=== PATIENT | male | born 1970 | race Caucasian/White ===

== ENCOUNTER 2017-01-30 11:30 | Emergency (ER) | payer MEDICAID ==
[~2017-01-30] VITALS: Ht 170.2 cm; Wt 61.2 kg
[2017-01-30 11:38] VITALS: BP_SYST 114
[2017-01-30] MEDS ORDERED: RITO100T PO (11:46)
[2017-01-30] MEDS ORDERED: EMTR1TAB12 PO (11:46)
[2017-01-30] MEDS ORDERED: NACL 0.9% 1,000 ML IV ONE ×2 (11:46→12:00)
[2017-01-30] MEDS ORDERED: DARU800T PO (11:46)
[2017-01-30] MEDS ORDERED: BELLADONNA ALKALOIDS/PHENOBARB 5 ML UDC PO ONE (12:00)
[2017-01-30 12:05] LABS: BASOPHILS % (AUTO) 0.2 % (0.0-2.0); EOSINOPHILS # (AUTO) 0.1 K/uL (0.0-0.4); EOSINOPHILS % (AUTO) 1.2 % (0.0-4.0); HEMATOCRIT 39.4 % (36-54); HEMOGLOBIN 12.5 g/dL (14.0-18.0); LYMPHOCYTES # (AUTO) 1.5 K/uL (1.0-5.5); LYMPHOCYTES % (AUTO) 26.4 % (20.5-51.5); MEAN CORPUSCULAR HEMOGLOBIN 29 pg (27-31); MEAN CORPUSCULAR HGB CONC 32 % (32-36); MEAN CORPUSCULAR VOLUME 90 fL (79.0-98.0); MONOCYTES # (AUTO) 0.3 K/uL (0.0-1.0); NEUTROPHILS # (AUTO) 3.7 K/uL (1.8-7.7); NEUTROPHILS % (AUTO) 66.2 % (40.0-70.0); PLATELET COUNT (AUTO) 407 K/uL (130-430); RED BLOOD CELL COUNT(AUTO) 4.39 MIL/uL (4.2-6.2); RED CELL DISTRIBUTION WIDTH 13.2 % (9.0-15.0); WHITE BLOOD COUNT (AUTO) 5.6 K/uL (4.8-10.8)
[2017-01-30 12:17] LABS: CALCIUM 8.3 mg/dL (8.4-11.0); CREATININE 0.76 mg/dL (0.55-1.30); POTASSIUM 3.6 mmol/L (3.5-5.1)
[2017-01-30 12:21] LABS: ALBUMIN 3.3 g/dL (3.4-4.8); PROTHROMBIN TIME 9.8 SECS (9.5-12.5); TOTAL BILIRUBIN 0.3 mg/dL (0.0-1.0)
[2017-01-30] MEDS ORDERED: MORPHINE 4 MG/ML INJ. SYRINGE IVP ONE (14:30)
[2017-01-30 14:48] LABS: BILIRUBIN,URINE NEGATIVE (NEGATIVE); BLOOD, URINE NEGATIVE (NEGATIVE); CLARITY/URINE CLEAR (CLEAR); COLOR,URINE YELLOW (YELLOW); GLUCOSE,URINE NEGATIVE (NEGATIVE); KETONES,URINE NEGATIVE (NEGATIVE); LEUKOCYTE ESTERASE ,URINE NEGATIVE (NEGATIVE); NITRITE, URINE NEGATIVE (NEGATIVE); PROTEIN URINE NEGATIVE (NEGATIVE); UROBILINOGEN,URINE 0.2 (0.2-1.0)
[2017-01-30 17:00] VITALS: BP_SYST 114
== END 2017-01-30 17:00 | disposition home or self-care (01) ==
LOC: SED 11:30
DX: K52.9 Noninfective gastroenteritis and colitis, unspecified (principal); E86.0 Dehydration; I10 Essential (primary) hypertension
CPT/HCPCS: 36415; 70450; 71010; 80053; 81003; 82150; 83605; 83690; 85025; 85610; 85730; 87040; 96361; 96374; 99285; J2270; J7030

== ENCOUNTER 2017-01-31 09:36 | Inpatient (IN) | payer MEDICAID ==
[~2017-01-31] VITALS: Ht 170.2 cm; Wt 65.8 kg
[~2017-01-31 09:36] MED LIST: DARU800T PO; EMTR1TAB12 PO; RITO100T PO
[2017-01-31 09:43] VITALS: BP_SYST 112
[2017-01-31] MEDS ORDERED: NACL 0.9% 1,000 ML IV ONE (09:53)
[2017-01-31] MEDS ORDERED: ONDANSETRON HCL 4 MG/2 ML VIAL IVP ONE (10:00)
[2017-01-31] MEDS ORDERED: MORPHINE 2 MG/ML INJ. SYRINGE IVP ONE (10:00)
[2017-01-31 10:11] LABS: BILIRUBIN,URINE NEGATIVE (NEGATIVE); BLOOD, URINE NEGATIVE (NEGATIVE); CLARITY/URINE SL HAZY (CLEAR); COLOR,URINE YELLOW (YELLOW); GLUCOSE,URINE NEGATIVE (NEGATIVE); KETONES,URINE NEGATIVE (NEGATIVE); LEUKOCYTE ESTERASE ,URINE NEGATIVE (NEGATIVE); NITRITE, URINE NEGATIVE (NEGATIVE); PH,URINE 5.5 (5.0-8.0); PROTEIN URINE NEGATIVE (NEGATIVE); UROBILINOGEN,URINE 0.2 (0.2-1.0)
[2017-01-31 10:22] LABS: BASOPHILS % (AUTO) 0.3 % (0.0-2.0); EOSINOPHILS # (AUTO) 0.1 K/uL (0.0-0.4); EOSINOPHILS % (AUTO) 1.6 % (0.0-4.0); HEMATOCRIT 33.8 % (36-54); HEMOGLOBIN 11.2 g/dL (14.0-18.0); LYMPHOCYTES # (AUTO) 1.6 K/uL (1.0-5.5); LYMPHOCYTES % (AUTO) 31.2 % (20.5-51.5); MEAN CORPUSCULAR HEMOGLOBIN 30 pg (27-31); MEAN CORPUSCULAR HGB CONC 33 % (32-36); MEAN CORPUSCULAR VOLUME 89 fL (79.0-98.0); MONOCYTES # (AUTO) 0.3 K/uL (0.0-1.0); MONOCYTES % (AUTO) 5.5 % (1.7-9.3); NEUTROPHILS # (AUTO) 3.3 K/uL (1.8-7.7); NEUTROPHILS % (AUTO) 61.4 % (40.0-70.0); PLATELET COUNT (AUTO) 389 K/uL (130-430); RED BLOOD CELL COUNT(AUTO) 3.79 MIL/uL (4.2-6.2); RED CELL DISTRIBUTION WIDTH 13.3 % (9.0-15.0); WHITE BLOOD COUNT (AUTO) 5.3 K/uL (4.8-10.8)
[2017-01-31 10:38] LABS: CALCIUM 8.2 mg/dL (8.4-11.0); CREATININE 0.68 mg/dL (0.55-1.30); POTASSIUM 3.7 mmol/L (3.5-5.1)
[2017-01-31 10:43] LABS: TOTAL BILIRUBIN 0.2 mg/dL (0.0-1.0)
[2017-01-31 11:45] VITALS: BP_SYST 97
[2017-01-31] MEDS ORDERED: ACETAMINOPHEN 325 MG TABLET PO PRN (15:30)
[2017-01-31] MEDS ORDERED: ONDANSETRON HCL 4 MG/2 ML VIAL IVP PRN (15:30)
[2017-01-31] MEDS: D5NS 1,000 ML IV SCH (16:20)
[2017-01-31] MEDS: metroNIDAZOLE 500 mg/NS 100 ML IV SCH ×2 (16:20→21:53)
[2017-01-31] MEDS: MORPHINE 4 MG/ML INJ. SYRINGE IVP PRN (16:21)
[2017-01-31 16:23] VITALS: BP_SYST 107
[2017-01-31] MEDS: LEVOFLOXACIN 500 MG/D5W 100 ML IV SCH (17:34)
[2017-01-31] MEDS: MORPHINE 2 MG/ML INJ. SYRINGE IVP PRN (19:44)
[2017-02-01 00:24] VITALS: BP_SYST 90
[2017-02-01] MEDS: MORPHINE 4 MG/ML INJ. SYRINGE IVP PRN ×5 (00:54→22:36)
[2017-02-01] MEDS: D5NS 1,000 ML IV SCH ×3 (01:30→20:54)
[2017-02-01 05:57] VITALS: BP_SYST 93
[2017-02-01 06:22] LABS: BASOPHILS % (AUTO) 0.2 % (0.0-2.0); EOSINOPHILS # (AUTO) 0.1 K/uL (0.0-0.4); EOSINOPHILS % (AUTO) 3.2 % (0.0-4.0); HEMATOCRIT 31.5 % (36-54); HEMOGLOBIN 10.5 g/dL (14.0-18.0); LYMPHOCYTES # (AUTO) 1.5 K/uL (1.0-5.5); LYMPHOCYTES % (AUTO) 41.2 % (20.5-51.5); MEAN CORPUSCULAR HEMOGLOBIN 30 pg (27-31); MEAN CORPUSCULAR HGB CONC 33 % (32-36); MEAN CORPUSCULAR VOLUME 89 fL (79.0-98.0); MONOCYTES # (AUTO) 0.4 K/uL (0.0-1.0); MONOCYTES % (AUTO) 10.8 % (1.7-9.3); NEUTROPHILS # (AUTO) 1.5 K/uL (1.8-7.7); NEUTROPHILS % (AUTO) 44.6 % (40.0-70.0); PLATELET COUNT (AUTO) 338 K/uL (130-430); RED BLOOD CELL COUNT(AUTO) 3.53 MIL/uL (4.2-6.2); RED CELL DISTRIBUTION WIDTH 13.1 % (9.0-15.0); WHITE BLOOD COUNT (AUTO) 3.5 K/uL (4.8-10.8)
[2017-02-01] MEDS: metroNIDAZOLE 500 mg/NS 100 ML IV SCH ×3 (06:23→21:51)
[2017-02-01 06:29] LABS: ALBUMIN 2.5 g/dL (3.4-4.8); CALCIUM 7.6 mg/dL (8.4-11.0); CREATININE 0.76 mg/dL (0.55-1.30); POTASSIUM 3.6 mmol/L (3.5-5.1); TOTAL BILIRUBIN 0.2 mg/dL (0.0-1.0)
[2017-02-01 08:26] VITALS: BP_SYST 101
[2017-02-01 13:05] VITALS: BP_SYST 107
[2017-02-01] MEDS: LEVOFLOXACIN 500 MG/D5W 100 ML IV SCH (15:28)
[2017-02-01 16:52] VITALS: BP_SYST 102
[2017-02-01] MEDS ORDERED: COMMUNICATION ORDER XX ONE (17:30)
[2017-02-01] MEDS: VANCOMYCIN HCL 250 MG CAPSULE PO SCH ×2 (18:31→23:57)
[2017-02-01 20:00] VITALS: BP_SYST 110
[2017-02-02] VITALS: BP_SYST 92
[2017-02-02 06:09] VITALS: BP_SYST 94
[2017-02-02] MEDS: VANCOMYCIN HCL 250 MG CAPSULE PO SCH ×4 (06:28→23:52)
[2017-02-02] MEDS: metroNIDAZOLE 500 mg/NS 100 ML IV SCH ×3 (06:28→22:16)
[2017-02-02] MEDS: MORPHINE 4 MG/ML INJ. SYRINGE IVP PRN ×3 (07:59→20:53)
[2017-02-02 08:05] VITALS: BP_SYST 105
[2017-02-02] MEDS: D5NS 1,000 ML IV SCH ×2 (10:48→22:16)
[2017-02-02 12:04] VITALS: BP_SYST 96
[2017-02-02 16:09] VITALS: BP_SYST 101
[2017-02-02] MEDS ORDERED: LOPERAMIDE HCL 2 MG CAPSULE PO PRN ×2 (19:00)
[2017-02-02 20:00] VITALS: BP_SYST 106
[2017-02-03 01:11] VITALS: BP_SYST 113
[2017-02-03] MEDS: MORPHINE 4 MG/ML INJ. SYRINGE IVP PRN ×3 (02:56→14:44)
[2017-02-03 03:12] VITALS: BP_SYST 116
[2017-02-03] MEDS: metroNIDAZOLE 500 mg/NS 100 ML IV SCH ×3 (06:00→21:06)
[2017-02-03] MEDS: VANCOMYCIN HCL 250 MG CAPSULE PO SCH ×4 (06:00→23:14)
[2017-02-03 08:11] VITALS: BP_SYST 103
[2017-02-03] MEDS: D5NS 1,000 ML IV SCH ×2 (08:13→12:56)
[2017-02-03] MEDS ORDERED: EMTRICITABINE PO SCH (11:00)
[2017-02-03] MEDS ORDERED: RITONAVIR PO SCH (11:00)
[2017-02-03] MEDS ORDERED: DARUNAVIR ETHANOLATE 800 MG PO SCH (11:00)
[2017-02-03] MEDS ORDERED: TENOFOVIR DISOPROXIL PO SCH (11:00)
[2017-02-03 11:32] LABS: BASOPHILS % (AUTO) 0.3 % (0.0-2.0); EOSINOPHILS # (AUTO) 0.1 K/uL (0.0-0.4); EOSINOPHILS % (AUTO) 2.6 % (0.0-4.0); HEMATOCRIT 31.1 % (36-54); HEMOGLOBIN 10.5 g/dL (14.0-18.0); LYMPHOCYTES # (AUTO) 1.8 K/uL (1.0-5.5); MEAN CORPUSCULAR HEMOGLOBIN 30 pg (27-31); MEAN CORPUSCULAR HGB CONC 34 % (32-36); MEAN CORPUSCULAR VOLUME 89 fL (79.0-98.0); MONOCYTES # (AUTO) 0.4 K/uL (0.0-1.0); MONOCYTES % (AUTO) 11.9 % (1.7-9.3); PLATELET COUNT (AUTO) 321 K/uL (130-430); RED CELL DISTRIBUTION WIDTH 13.1 % (9.0-15.0)
[2017-02-03 11:55] LABS: CALCIUM 7.8 mg/dL (8.4-11.0); CREATININE 0.76 mg/dL (0.55-1.30); POTASSIUM 3.4 mmol/L (3.5-5.1)
[2017-02-03 12:20] VITALS: BP_SYST 97
[2017-02-03 12:29] LABS: WHITE BLOOD COUNT (AUTO) 3.3 K/uL (4.8-10.8)
[2017-02-03 12:30] LABS: NEUTROPHILS % (AUTO) 29.2 % (40.0-70.0)
[2017-02-03 16:16] VITALS: BP_SYST 103
[2017-02-03] MEDS: MORPHINE 2 MG/ML INJ. SYRINGE IVP PRN ×2 (18:48→23:15)
[2017-02-03] MEDS ORDERED: POTASSIUM CHLORIDE 20 MEQ TAB.PRT.SR PO ONE (19:30)
[2017-02-03 20:00] VITALS: BP_SYST 98
[2017-02-03] MEDS: POTASSIUM CHLORIDE 20 MEQ TAB.PRT.SR PO SCH (20:23)
[2017-02-04] VITALS (8 sets, daily range): BP systolic 85–124
[2017-02-04] MEDS: D5NS 1,000 ML IV SCH ×2 (02:34→14:10)
[2017-02-04] MEDS: VANCOMYCIN HCL 250 MG CAPSULE PO SCH ×3 (05:04→16:38)
[2017-02-04] MEDS: metroNIDAZOLE 500 mg/NS 100 ML IV SCH ×2 (05:04→14:10)
[2017-02-04] MEDS: MORPHINE 2 MG/ML INJ. SYRINGE IVP PRN ×3 (05:05→14:02)
[2017-02-04] MEDS ORDERED: TRUVADA PO SCH (09:00)
[2017-02-04] MEDS ORDERED: NORVIR 100 MG PO SCH (09:00)
[2017-02-04] MEDS ORDERED: PREZISTA 800 MG PO SCH (09:00)
[2017-02-04] MEDS: POTASSIUM CHLORIDE 20 MEQ TAB.PRT.SR PO SCH (09:02)
[2017-02-04] MEDS ORDERED: POTA20TA83 PO (14:40)
[2017-02-04] MEDS ORDERED: VANC250C11 PO (14:40)
[2017-02-04] MEDS ORDERED: METR500T PO (15:54)
[2017-02-04] MEDS ORDERED: L.RH1CAP PO (15:55)
== END 2017-02-04 17:00 | disposition home or self-care (01) | DRG 893 ==
LOC: SED 09:36 → SMU 11:04
PROVIDERS: ADMIT Internal Medicine Hospice and Palliative Medicine; ATTEND Internal Medicine Hospice and Palliative Medicine
DX: B20 Human immunodeficiency virus [HIV] disease (principal); A04.72 Enterocolitis due to Clostridium difficile, not specified as recurrent; E44.0 Moderate protein-calorie malnutrition; E86.0 Dehydration; D63.8 Anemia in other chronic diseases classified elsewhere; Z79.899 Other long term (current) drug therapy; Z68.22 Body mass index [BMI] 22.0-22.9, adult
CPT/HCPCS: 36415; 80048; 80053; 81003; 85025; 87045-TC; 87046; 87177; 87230-TC; 89055; 96361; 96374; 96375; 99285; J1956; J2270; J2405; J3490; J7030; J7040; J7042

== ENCOUNTER 2018-03-25 17:22 | Emergency (ER) | payer MEDICAID ==
[~2018-03-25] VITALS: Ht 167.6 cm; Wt 56.2 kg
[~2018-03-25 17:22] MED LIST changes: +L.RH1CAP PO; +METR500T PO; +POTA20TA83 PO; +VANC250C11 PO
[2018-03-25 17:34] VITALS: BP_SYST 122
--- NOTE | 2018-03-25 17:37 | NUR ---
Patient triaged and placed in waiting room. VSS and patient appears in no acute distress at this time. Accompanied by family, awaiting available bed, and MD notified of need for MSE.
--- NOTE | 2018-03-25 18:05 | NUR ---
Pt placed in bed 8
--- NOTE | 2018-03-25 18:11 | NUR ---
ARISTEO Fitch at bedside examining patient.
[2018-03-25] MEDS ORDERED: MORPHINE 4 MG/ML INJ. SYRINGE IVP ONE (18:15)
[2018-03-25] MEDS ORDERED: NACL 0.9% 1,000 ML IV ONE (18:15)
--- NOTE | 2018-03-25 18:55 | NUR ---
IV FLUIDS STARTED AND MORPHINE IVP GIVEN PER MD ORDERS. TOLERATING WELL. PLEASE SEE MAR FOR DETAILS.
[2018-03-25 19:16] LABS: HEMATOCRIT 37.7 % (36-54); HEMOGLOBIN 12.4 g/dL (14.0-18.0); MEAN CORPUSCULAR HEMOGLOBIN 30 pg (27-31); MEAN CORPUSCULAR HGB CONC 33 % (32-36); MEAN CORPUSCULAR VOLUME 91 fL (79.0-98.0); PLATELET COUNT (AUTO) 230 K/uL (130-430); RED BLOOD CELL COUNT(AUTO) 4.14 MIL/uL (4.2-6.2); RED CELL DISTRIBUTION WIDTH 13.2 % (9.0-15.0); WHITE BLOOD COUNT (AUTO) 3.6 K/uL (4.8-10.8)
[2018-03-25 19:27] LABS: CALCIUM 8.2 mg/dL (8.4-11.0); CREATININE 0.79 mg/dL (0.55-1.30); POTASSIUM 3.4 mmol/L (3.5-5.1)
--- NOTE | 2018-03-25 19:30 | NUR ---
Pt came in C/O R middle finger pain/ swelling and abdominal pain and diarrhea x 3 days. Pt was medicated with morphine. Vital signs stable at this time, no acute distress noted. Will continue to monitor.
[2018-03-25 19:31] LABS: ALBUMIN 3.1 g/dL (3.4-4.8); TOTAL BILIRUBIN 0.2 mg/dL (0.0-1.0)
--- NOTE | 2018-03-25 19:31 | NUR ---
Pt is sleeping quietly in bed, no acute distress noted at this time. Will continue to monitor.
[2018-03-25 20:10] LABS: BILIRUBIN,URINE NEGATIVE (NEGATIVE); BLOOD, URINE NEGATIVE (NEGATIVE); CLARITY/URINE SL HAZY (CLEAR); COLOR,URINE YELLOW (YELLOW); GLUCOSE,URINE NEGATIVE (NEGATIVE); KETONES,URINE TRACE (NEGATIVE); LEUKOCYTE ESTERASE ,URINE NEGATIVE (NEGATIVE); NITRITE, URINE NEGATIVE (NEGATIVE); PROTEIN URINE TRACE (NEGATIVE); UROBILINOGEN,URINE 0.2 (0.2-1.0)
[2018-03-25 20:23] LABS: BACTERIA,URINE FEW /HPF (None Seen); MUCUS,URINE 2+ /LPF (None Seen); RBC,URINE 0-3 /HPF (0-3); WBC,URINE 0-3 /HPF (0-3)
[2018-03-25 20:24] LABS: ATYPICAL LYMPHOCYTES % 6 % (0-0); BAND % (MANUAL) 8 % (0-6); BASOPHILS % (MANUAL) 0 % (0-2); EOSINOPHILS % (MANUAL) 3 % (0-7); LYMPHOCYTES % (MANUAL) 35 % (20-46); MONOCYTES % (MANUAL) 8 % (0-11)
--- NOTE | 2018-03-25 20:35 | NUR ---
Patient given written and verbal discharge instructions and verbalizes understanding. ER MD discussed with patient the results and treatment provided. Patient in stable condition. ID arm band removed. IV catheter removed intact and dressing applied, no active bleeding. Rx of Cipro, Motrin, and [place] given. Patient educated on pain management and to follow up with PMD. Pain Scale 0/10. Opportunity for questions provided and answered. Medication side effect fact sheet provided.
[2018-03-25 20:36] VITALS: BP_SYST 101
== END 2018-03-25 20:35 | disposition home or self-care (01) ==
LOC: SED 17:22
DX: R10.84 Generalized abdominal pain (principal); R19.7 Diarrhea, unspecified; I10 Essential (primary) hypertension; Z79.899 Other long term (current) drug therapy
CPT/HCPCS: 36415; 74176; 80053; 81000; 83605; 83690; 85007; 85027; 87040; 87086; 96361; 96374; 99284; J2270; J7030

== ENCOUNTER 2018-03-26 10:17 | Emergency (ER) | payer MEDICAID ==
[~2018-03-26] VITALS: Ht 167.6 cm; Wt 56.7 kg
[2018-03-26 10:23] VITALS: BP_SYST 110
[2018-03-26] MEDS ORDERED: NACL 0.9% 1,000 ML IV ONE (10:37)
[2018-03-26 11:21] LABS: BASOPHILS % (AUTO) 0.5 % (0.0-2.0); EOSINOPHILS # (AUTO) 0.2 K/uL (0.0-0.4); HEMATOCRIT 38.5 % (36-54); HEMOGLOBIN 12.6 g/dL (14.0-18.0); LYMPHOCYTES # (AUTO) 1.5 K/uL (1.0-5.5); LYMPHOCYTES % (AUTO) 35.7 % (20.5-51.5); MEAN CORPUSCULAR HEMOGLOBIN 30 pg (27-31); MEAN CORPUSCULAR HGB CONC 33 % (32-36); MEAN CORPUSCULAR VOLUME 93 fL (79.0-98.0); MONOCYTES # (AUTO) 0.3 K/uL (0.0-1.0); MONOCYTES % (AUTO) 6.6 % (1.7-9.3); NEUTROPHILS # (AUTO) 2.2 K/uL (1.8-7.7); NEUTROPHILS % (AUTO) 53.2 % (40.0-70.0); PLATELET COUNT (AUTO) 218 K/uL (130-430); RED BLOOD CELL COUNT(AUTO) 4.15 MIL/uL (4.2-6.2); RED CELL DISTRIBUTION WIDTH 13.8 % (9.0-15.0); WHITE BLOOD COUNT (AUTO) 4.2 K/uL (4.8-10.8)
[2018-03-26] MEDS ORDERED: MORPHINE 4 MG/ML INJ. SYRINGE IVP ONE (11:30)
[2018-03-26 11:41] LABS: CALCIUM 7.8 mg/dL (8.4-11.0); CREATININE 0.79 mg/dL (0.55-1.30); POTASSIUM 3.3 mmol/L (3.5-5.1)
[2018-03-26 11:48] LABS: PROTHROMBIN TIME 10.2 SECS (9.5-12.5)
[2018-03-26 11:49] LABS: ALBUMIN 3.2 g/dL (3.4-4.8); TOTAL BILIRUBIN 0.2 mg/dL (0.0-1.0)
[2018-03-26 12:01] LABS: BILIRUBIN,URINE NEGATIVE (NEGATIVE); BLOOD, URINE NEGATIVE (NEGATIVE); CLARITY/URINE CLEAR (CLEAR); COLOR,URINE YELLOW (YELLOW); GLUCOSE,URINE NEGATIVE (NEGATIVE); KETONES,URINE TRACE (NEGATIVE); LEUKOCYTE ESTERASE ,URINE NEGATIVE (NEGATIVE); NITRITE, URINE NEGATIVE (NEGATIVE); PROTEIN URINE TRACE (NEGATIVE); UROBILINOGEN,URINE 0.2 (0.2-1.0)
[2018-03-26] MEDS ORDERED: cefTRIAXone 1 GM IVPB PREMIX 50 ML IV ONE (12:45)
[2018-03-26 13:45] VITALS: BP_SYST 110
== END 2018-03-26 13:45 | disposition home or self-care (01) ==
LOC: SED 10:17
DX: G89.29 Other chronic pain (principal); R10.9 Unspecified abdominal pain; R19.7 Diarrhea, unspecified; L03.011 Cellulitis of right finger; I10 Essential (primary) hypertension; Z79.899 Other long term (current) drug therapy
CPT/HCPCS: 36415; 71045; 80053; 81003; 82550; 83605; 83690; 84484; 85025; 85610; 85730; 87040; 93005; 96361; 96365; 96375; 99284; J0696; J2270; J7030

== ENCOUNTER 2018-04-21 20:23 | Emergency (ER) | payer MEDICAID ==
[~2018-04-21] VITALS: Ht 170.2 cm; Wt 70.3 kg
[~2018-04-21 20:23] MED LIST changes: -L.RH1CAP PO; -METR500T PO; -POTA20TA83 PO; -VANC250C11 PO
[2018-04-21 20:35] VITALS: BP_SYST 106
[2018-04-21] MEDS ORDERED: SULF1TAB48 PO (20:40)
[2018-04-21] MEDS ORDERED: CEPH-568 PO (20:40)
[2018-04-21] MEDS ORDERED: LOM2.5 PO (20:40)
[2018-04-21] MEDS ORDERED: MORPHINE 4 MG/ML INJ. SYRINGE IVP ONE (20:45)
[2018-04-21] MEDS ORDERED: NS 1000 ML IV.SOLN IV ONE (20:45)
[2018-04-21] MEDS ORDERED: ONDANSETRON HCL 4 MG/2 ML VIAL IVP ONE (20:45)
[2018-04-21] MEDS ORDERED: ACETAMINOPHEN 500 MG TABLET PO ONE (20:45)
[2018-04-21 20:59] LABS: BASOPHILS % (AUTO) 0.4 % (0.0-2.0); EOSINOPHILS % (AUTO) 0.7 % (0.0-4.0); HEMATOCRIT 34.9 % (36-54); HEMOGLOBIN 11.5 g/dL (14.0-18.0); LYMPHOCYTES # (AUTO) 1.3 K/uL (1.0-5.5); LYMPHOCYTES % (AUTO) 45.9 % (20.5-51.5); MEAN CORPUSCULAR HEMOGLOBIN 30 pg (27-31); MEAN CORPUSCULAR HGB CONC 33 % (32-36); MEAN CORPUSCULAR VOLUME 92 fL (79.0-98.0); MONOCYTES # (AUTO) 0.2 K/uL (0.0-1.0); MONOCYTES % (AUTO) 7.4 % (1.7-9.3); NEUTROPHILS # (AUTO) 1.3 K/uL (1.8-7.7); NEUTROPHILS % (AUTO) 45.6 % (40.0-70.0); PLATELET COUNT (AUTO) 232 K/uL (130-430); RED BLOOD CELL COUNT(AUTO) 3.81 MIL/uL (4.2-6.2); RED CELL DISTRIBUTION WIDTH 14.1 % (9.0-15.0); WHITE BLOOD COUNT (AUTO) 2.8 K/uL (4.8-10.8)
[2018-04-21 21:07] LABS: CALCIUM 8.2 mg/dL (8.4-11.0); CREATININE 0.76 mg/dL (0.55-1.30); POTASSIUM 3.8 mmol/L (3.5-5.1)
[2018-04-21 21:12] LABS: PROTHROMBIN TIME 9.9 SECS (9.5-12.5)
[2018-04-21 21:14] LABS: ALBUMIN 2.9 g/dL (3.4-4.8); TOTAL BILIRUBIN 0.2 mg/dL (0.0-1.0)
[2018-04-21] MEDS ORDERED: KETOROLAC TROMETHAMINE 30 MG VIAL IVP ONE (21:30)
[2018-04-21 21:35] LABS: BILIRUBIN,URINE NEGATIVE (NEGATIVE); BLOOD, URINE NEGATIVE (NEGATIVE); CLARITY/URINE CLEAR (CLEAR); COLOR,URINE YELLOW (YELLOW); GLUCOSE,URINE NEGATIVE (NEGATIVE); KETONES,URINE NEGATIVE (NEGATIVE); LEUKOCYTE ESTERASE ,URINE NEGATIVE (NEGATIVE); NITRITE, URINE NEGATIVE (NEGATIVE); PROTEIN URINE NEGATIVE (NEGATIVE); UROBILINOGEN,URINE 0.2 (0.2-1.0)
[2018-04-21 21:45] LABS: BARBITURATE, URINE NEGATIVE (NEG <=200); BENZODIAZEPINE, URINE NEGATIVE (NEG <=150); CANNABINOID, URINE NEGATIVE (NEG <=50); COCAINE, URINE NEGATIVE (NEG <=150); METHAMPHETAMINES SCREEN,URINE POSITIVE (NEG <=500); OPIATE, URINE POSITIVE (NEG <=100); PHENCYCLIDINE SCREEN,URINE NEGATIVE (NEG <=25); UR TRICYCLIC ANTIDEPRESSANTS NEGATIVE (NEG <=300); URINE AMPHETAMINE POSITIVE (NEG <=500); URINE METHADONE NEGATIVE (NEG <=200); URINE OXYCODONE SCREEN NEGATIVE (NEG <=100); URINE PROPOXYPHENE SCREEN NEGATIVE (NEG <=300)
[2018-04-21 23:10] VITALS: BP_SYST 106
== END 2018-04-21 23:10 | disposition home or self-care (01) ==
LOC: SED 20:23
DX: R10.84 Generalized abdominal pain (principal); D64.9 Anemia, unspecified; R11.2 Nausea with vomiting, unspecified; R19.7 Diarrhea, unspecified; F15.90 Other stimulant use, unspecified, uncomplicated; Z79.899 Other long term (current) drug therapy
CPT/HCPCS: 36415; 71045; 74176; 80053; 80307; 81003; 83605; 83690; 84484; 85025; 85610; 85730; 87040; 87086; 93005; 96361; 96374; 96375; 99284; J1885; J2270; J2405; J7030

== ENCOUNTER 2018-06-11 17:40 | Emergency (ER) | payer MEDICAID ==
[~2018-06-11] VITALS: Ht 167.6 cm; Wt 51.3 kg
[2018-06-11 17:40] VITALS: BP_SYST 107
[~2018-06-11 17:40] MED LIST changes: +CEPH-568 PO; +LOM2.5 PO; +SULF1TAB48 PO
[2018-06-11] MEDS ORDERED: NACL 0.9% 1,000 ML IV ONE (18:23)
[2018-06-11] MEDS ORDERED: ONDANSETRON HCL 4 MG/2 ML VIAL IVP ONE (18:30)
[2018-06-11] MEDS ORDERED: MORPHINE 4 MG/ML INJ. SYRINGE IVP ONE ×3 (18:30→20:45)
[2018-06-11 19:02] LABS: HEMATOCRIT 35.5 % (36-54); HEMOGLOBIN 11.8 g/dL (14.0-18.0); MEAN CORPUSCULAR HEMOGLOBIN 31 pg (27-31); MEAN CORPUSCULAR HGB CONC 33 % (32-36); MEAN CORPUSCULAR VOLUME 94 fL (79.0-98.0); PLATELET COUNT (AUTO) 296 K/uL (130-430); RED BLOOD CELL COUNT(AUTO) 3.79 MIL/uL (4.2-6.2); RED CELL DISTRIBUTION WIDTH 14.7 % (9.0-15.0); WHITE BLOOD COUNT (AUTO) 3.4 K/uL (4.8-10.8)
[2018-06-11 19:06] LABS: ANION GAP < 3 (5-15); CALCIUM 7.9 mg/dL (8.4-11.0); CHLORIDE 104 mmol/L (98-107); CREATININE 0.77 mg/dL (0.55-1.30); GFR AFRICAN AMERICAN 139 mL/min (>90); GLUCOSE 86 mg/dL (70-99); POTASSIUM 3.9 mmol/L (3.5-5.1); SODIUM SERUM 135 mmol/L (136-145); UREA NITROGEN, BLOOD 16 mg/dL (8-21)
[2018-06-11 19:08] LABS: PROTHROMBIN TIME 9.9 SECS (9.5-12.5)
[2018-06-11 19:09] LABS: ALANINE AMINOTRANSFERASE 36 U/L (12-78); ALBUMIN 3.1 g/dL (3.4-4.8); AMYLASE 159 U/L (0-100); ASPARTATE AMINOTRANSFERASE 36 U/L (10-37); LIPASE 152 U/L (73-393); TOTAL BILIRUBIN 0.2 mg/dL (0.0-1.0)
[2018-06-11 19:14] LABS: BAND % (MANUAL) 0 % (0-6); BASOPHILS % (MANUAL) 0 % (0-2); EOSINOPHILS % (MANUAL) 0 % (0-7); LYMPHOCYTES % (MANUAL) 44 % (20-46); MONOCYTES % (MANUAL) 7 % (0-11)
[2018-06-11 21:40] VITALS: BP_SYST 110
== END 2018-06-11 21:40 | disposition home or self-care (01) ==
LOC: SED 17:40
DX: R10.84 Generalized abdominal pain (principal); R19.7 Diarrhea, unspecified; Z79.899 Other long term (current) drug therapy
CPT/HCPCS: 36415; 71045; 80053; 82150; 82550; 83605; 83690; 83880; 84484; 85007; 85027; 85379; 85610; 85730; 87040; 89055; 93005; 96361; 96374; 96375; 96376; 99284; J2270; J2405; J7030

== ENCOUNTER 2018-11-04 10:57 | Emergency (ER) | payer MEDICAID ==
[~2018-11-04] VITALS: Ht 167.6 cm; Wt 58.5 kg
[2018-11-04 11:07] VITALS: BP_SYST 97
--- NOTE | 2018-11-04 11:11 | NUR ---
Patient to ER bed 5 to gown for evaluation. Side rails up. Report given to JOSUE [place]oshead librarian.
--- NOTE | 2018-11-04 11:21 | NUR ---
ER at bedside examining patient.
--- NOTE | 2018-11-04 11:55 | NUR ---
PT LYING ON BED. DR. CURTIS EXAMINED PT ALREADY.
[2018-11-04] MEDS ORDERED: HYDROcodone/ACETAMIN 10-325 MG TAB PO ONE (12:45)
[2018-11-04] MEDS ORDERED: IBUPROFEN 800 MG TABLET PO ONE (12:45)
[2018-11-04 12:54] LABS: BASOPHILS % (AUTO) 0.3 % (0.0-2.0); EOSINOPHILS # (AUTO) 0.1 K/uL (0.0-0.4); EOSINOPHILS % (AUTO) 2.4 % (0.0-4.0); HEMOGLOBIN 10.9 g/dL (14.0-18.0); LYMPHOCYTES # (AUTO) 1.4 K/uL (1.0-5.5); LYMPHOCYTES % (AUTO) 30.2 % (20.5-51.5); MEAN CORPUSCULAR HEMOGLOBIN 32 pg (27-31); MEAN CORPUSCULAR HGB CONC 33 % (32-36); MEAN CORPUSCULAR VOLUME 95 fL (79.0-98.0); MONOCYTES # (AUTO) 0.3 K/uL (0.0-1.0); MONOCYTES % (AUTO) 6.3 % (1.7-9.3); NEUTROPHILS # (AUTO) 2.7 K/uL (1.8-7.7); NEUTROPHILS % (AUTO) 60.8 % (40.0-70.0); PLATELET COUNT (AUTO) 234 K/uL (130-430); RED BLOOD CELL COUNT(AUTO) 3.47 MIL/uL (4.2-6.2); RED CELL DISTRIBUTION WIDTH 14.4 % (9.0-15.0); WHITE BLOOD COUNT (AUTO) 4.5 K/uL (4.8-10.8)
--- NOTE | 2018-11-04 13:04 | NUR ---
PAIN MEDICATED FOR PAIN TOLERATED WELL,CONTUINING TO MONITOR FOR IMPROVEMENT
[2018-11-04 13:17] LABS: ANION GAP 5 (5-15); CHLORIDE 106 mmol/L (98-107); GLUCOSE 74 mg/dL (70-99); POTASSIUM 3.8 mmol/L (3.5-5.1); SODIUM SERUM 140 mmol/L (136-145); UREA NITROGEN, BLOOD 11 mg/dL (8-21)
[2018-11-04 13:19] LABS: ALANINE AMINOTRANSFERASE 14 U/L (12-78); ALBUMIN 2.7 g/dL (3.4-4.8); ASPARTATE AMINOTRANSFERASE 21 U/L (10-37); C-REACTIVE PROTEIN QUANT < 0.2 mg/dL (0-0.5); TOTAL BILIRUBIN 0.2 mg/dL (0.0-1.0)
[2018-11-04 13:20] LABS: GFR AFRICAN AMERICAN 155 mL/min (>90)
[2018-11-04 13:24] LABS: PROTHROMBIN TIME 9.9 SECS (9.5-12.5)
[2018-11-04] MEDS ORDERED: cefTRIAXone 1 GM in LIDOCAINE 1%, 20 ML MDV 2.1 ML IM ONE (14:00)
[2018-11-04 14:13] VITALS: BP_SYST 131
--- NOTE | 2018-11-04 14:14 | NUR ---
Patient given written and verbal discharge instructions and verbalizes understanding. ER MD discussed with patient the results and treatment provided. Patient in stable condition. ID arm band removed. IV catheter removed intact and dressing applied, no active bleeding. Rx of NROCO ADN CLINDAMYCIN given. Patient educated on pain management and to follow up with PMD. Pain Scale 0. Opportunity for questions provided and answered. Medication side effect fact sheet provided.
== END 2018-11-04 14:13 | disposition home or self-care (01) ==
LOC: SED 10:57
DX: L03.113 Cellulitis of right upper limb (principal); Z79.899 Other long term (current) drug therapy
CPT/HCPCS: 36415; 80053; 83605; 85025; 85610-TC; 85730-TC; 86140; 87040-TC; 99284

== ENCOUNTER 2018-11-06 17:59 | Inpatient (IN) | payer MEDICAID ==
[~2018-11-06] VITALS: Ht 170.2 cm; Wt 54.9 kg
[2018-11-06 18:12] VITALS: BP_SYST 109
[2018-11-06 19:04] LABS: BASOPHILS % (AUTO) 0.2 % (0.0-2.0); EOSINOPHILS % (AUTO) 1.1 % (0.0-4.0); HEMATOCRIT 34.2 % (36-54); HEMOGLOBIN 11.5 g/dL (14.0-18.0); LYMPHOCYTES # (AUTO) 0.9 K/uL (1.0-5.5); LYMPHOCYTES % (AUTO) 21.4 % (20.5-51.5); MEAN CORPUSCULAR HEMOGLOBIN 32 pg (27-31); MEAN CORPUSCULAR HGB CONC 34 % (32-36); MEAN CORPUSCULAR VOLUME 94 fL (79.0-98.0); MONOCYTES # (AUTO) 0.3 K/uL (0.0-1.0); MONOCYTES % (AUTO) 6.3 % (1.7-9.3); NEUTROPHILS # (AUTO) 3.1 K/uL (1.8-7.7); PLATELET COUNT (AUTO) 245 K/uL (130-430); RED BLOOD CELL COUNT(AUTO) 3.62 MIL/uL (4.2-6.2); RED CELL DISTRIBUTION WIDTH 13.7 % (9.0-15.0); WHITE BLOOD COUNT (AUTO) 4.3 K/uL (4.8-10.8)
[2018-11-06 19:10] LABS: CALCIUM 8.1 mg/dL (8.4-11.0); CREATININE 0.73 mg/dL (0.55-1.30); POTASSIUM 3.8 mmol/L (3.5-5.1)
[2018-11-06 19:15] LABS: TOTAL BILIRUBIN 0.3 mg/dL (0.0-1.0)
[2018-11-06] MEDS ORDERED: NACL 0.9% 1,000 ML IV ONE (21:08)
[2018-11-06] MEDS ORDERED: MORPHINE 4 MG/ML INJ. SYRINGE IVP ONE (21:15)
[2018-11-06] MEDS ORDERED: VANCOMYCIN HCL 1,000 MG in NS 250 ML IV ONE (21:15)
[2018-11-06] MEDS ORDERED: DIPHENHYDRAMINE INJ 50 MG/ML VIAL IVP ONE (21:15)
[2018-11-06] MEDS ORDERED: CLIN150C15 PO (21:18)
[2018-11-06] MEDS ORDERED: HYDR-3917 PO (21:18)
[2018-11-06] MEDS ORDERED: VANCOMYCIN HCL 1000 MG/VIAL IV ONE (21:42)
[2018-11-06] MEDS ORDERED: PIPERACILLIN/TAZO 3.375 GM in NS 50 ML IV SCH (21:45)
[2018-11-06] MEDS ORDERED: HYDROmorphone 2 MG/ML VIAL IVP PRN (21:45)
[2018-11-06 22:29] VITALS: BP_SYST 125
[2018-11-07] MEDS ORDERED: PIPERACILLIN/TAZOBACTAM 3.375 GM/VIAL (ZOSYN) IV ONE (00:20)
[2018-11-07] MEDS: PIPERACILLIN/TAZO 3.375 GM in NS 50 ML IV SCH ×4 (00:25→13:30)
[2018-11-07 00:30] VITALS: BP_SYST 116
[2018-11-07] MEDS: HYDROmorphone 1 MG INJ. 1 MG/ML AMPUL IVP PRN ×5 (00:47→20:43)
[2018-11-07 08:00] VITALS: BP_SYST 83
[2018-11-07] MEDS: VANCOMYCIN HCL 750 MG in NS 250 ML IV SCH ×2 (11:55→23:45)
[2018-11-07 12:00] VITALS: BP_SYST 96
[2018-11-07] MEDS ORDERED: DARUNAVIR ETHANOLATE 800 MG PO SCH (12:15)
[2018-11-07 16:00] VITALS: BP_SYST 86
[2018-11-07] MEDS ORDERED: CLINDAMYCIN 600 MG in D5W 50 ML IV ONE (19:00)
[2018-11-07 20:30] VITALS: BP_SYST 95
[2018-11-07] MEDS: FLUCONAZOLE 200 mg/ NS 100 ML IV SCH (20:40)
[2018-11-07] MEDS: ENOXAPARIN SODIUM 40 MG/0.4 ML SYRINGE SUBCUT SCH (20:49)
[2018-11-08] MEDS: CLINDAMYCIN 600 MG in D5W 50 ML IV SCH ×5 (01:01→23:27)
[2018-11-08] MEDS: HYDROmorphone 1 MG INJ. 1 MG/ML AMPUL IVP PRN ×5 (01:24→21:04)
[2018-11-08 05:00] VITALS: BP_SYST 99
[2018-11-08 05:51] LABS: BASOPHILS % (AUTO) 0.3 % (0.0-2.0); EOSINOPHILS # (AUTO) 0.1 K/uL (0.0-0.4); EOSINOPHILS % (AUTO) 1.6 % (0.0-4.0); HEMATOCRIT 31.4 % (36-54); HEMOGLOBIN 10.5 g/dL (14.0-18.0); LYMPHOCYTES # (AUTO) 1.3 K/uL (1.0-5.5); LYMPHOCYTES % (AUTO) 31.5 % (20.5-51.5); MEAN CORPUSCULAR HEMOGLOBIN 31 pg (27-31); MEAN CORPUSCULAR HGB CONC 34 % (32-36); MEAN CORPUSCULAR VOLUME 94 fL (79.0-98.0); MONOCYTES # (AUTO) 0.4 K/uL (0.0-1.0); MONOCYTES % (AUTO) 10.2 % (1.7-9.3); NEUTROPHILS # (AUTO) 2.3 K/uL (1.8-7.7); NEUTROPHILS % (AUTO) 56.4 % (40.0-70.0); PLATELET COUNT (AUTO) 224 K/uL (130-430); RED BLOOD CELL COUNT(AUTO) 3.34 MIL/uL (4.2-6.2); RED CELL DISTRIBUTION WIDTH 13.9 % (9.0-15.0)
[2018-11-08 06:53] LABS: CALCIUM 8.3 mg/dL (8.4-11.0); CREATININE 0.7 mg/dL (0.55-1.30); POTASSIUM 4.1 mmol/L (3.5-5.1)
[2018-11-08 08:00] LABS: WHITE BLOOD COUNT (AUTO) 4.1 K/uL (4.8-10.8)
[2018-11-08 08:35] LABS: ERYTHROCYTE SEDIMENTATION RATE 86 MM/HR (0-15)
[2018-11-08 08:46] VITALS: BP_SYST 94
[2018-11-08] MEDS: VANCOMYCIN HCL 750 MG in NS 250 ML IV SCH (11:29)
[2018-11-08 11:47] VITALS: BP_SYST 91
[2018-11-08 12:00] VITALS: BP_SYST 86
[2018-11-08 16:42] VITALS: BP_SYST 102
[2018-11-08 20:00] VITALS: BP_SYST 97
[2018-11-08] MEDS: FLUCONAZOLE 200 mg/ NS 100 ML IV SCH (21:04)
[2018-11-08] MEDS: ENOXAPARIN SODIUM 40 MG/0.4 ML SYRINGE SUBCUT SCH (21:08)
[2018-11-09] MEDS: VANCOMYCIN HCL 750 MG in NS 250 ML IV SCH ×3 (00:19→18:09)
[2018-11-09 01:21] VITALS: BP_SYST 101
[2018-11-09 02:45] VITALS: BP_SYST 107
[2018-11-09] MEDS: HYDROmorphone 1 MG INJ. 1 MG/ML AMPUL IVP PRN ×4 (02:47→17:33)
[2018-11-09] MEDS: CLINDAMYCIN 600 MG in D5W 50 ML IV SCH ×3 (05:57→17:32)
[2018-11-09 08:00] VITALS: BP_SYST 98
[2018-11-09 11:21] VITALS: BP_SYST 108
[2018-11-09 16:02] VITALS: BP_SYST 98
[2018-11-09 20:00] VITALS: BP_SYST 106
[2018-11-09] MEDS: ENOXAPARIN SODIUM 40 MG/0.4 ML SYRINGE SUBCUT SCH (21:58)
[2018-11-09] MEDS: FLUCONAZOLE 200 mg/ NS 100 ML IV SCH (21:58)
[2018-11-09] MEDS: HYDROcodone/ACETAMIN 5-325 MG TAB (NORCO/ VICODIN) PO PRN (22:00)
[2018-11-10] VITALS: BP_SYST 99
[2018-11-10] MEDS: CLINDAMYCIN 600 MG in D5W 50 ML IV SCH ×5 (00:06→23:19)
[2018-11-10] MEDS: HYDROcodone/ACETAMIN 5-325 MG TAB (NORCO/ VICODIN) PO PRN ×5 (02:33→21:35)
[2018-11-10] MEDS: VANCOMYCIN HCL 750 MG in NS 250 ML IV SCH ×2 (02:56→10:54)
[2018-11-10 08:00] VITALS: BP_SYST 100
[2018-11-10 10:48] LABS: CHLORIDE 100 mmol/L (98-107); CREATININE 0.71 mg/dL (0.55-1.30); GLUCOSE 70 mg/dL (70-99); POTASSIUM 3.9 mmol/L (3.5-5.1); SODIUM SERUM 131 mmol/L (136-145); UREA NITROGEN, BLOOD 10 mg/dL (8-21)
[2018-11-10 11:23] LABS: ANION GAP < 3 (5-15); GFR AFRICAN AMERICAN 153 mL/min (>90)
[2018-11-10 12:26] VITALS: BP_SYST 93
[2018-11-10] MEDS ORDERED: RITONAVIR 100 MG CAPSULE (NORVIR) PO ONE (15:00)
[2018-11-10] MEDS ORDERED: TENOFOVIR DISOPROXIL FUMARATE 300 MG TABLET(VIREAD) PO ONE (15:00)
[2018-11-10] MEDS ORDERED: EMTRICITABINE 200 MG CAPSULE PO ONE (15:00)
[2018-11-10 15:42] VITALS: BP_SYST 104
[2018-11-10] MEDS: LIDOCAINE VISCOUS 2%, 15 ML UDC MM PRN ×2 (17:33→21:35)
[2018-11-10] MEDS: VANCOMYCIN HCL 1,000 MG in NS 250 ML IV SCH (18:35)
[2018-11-10 20:00] VITALS: BP_SYST 96
[2018-11-10] MEDS: MUPIROCIN 2% TOPICAL OINTMENT 22 GM NS SCH (21:35)
[2018-11-10] MEDS: FLUCONAZOLE 200 mg/ NS 100 ML IV SCH (21:37)
[2018-11-10] MEDS: ENOXAPARIN SODIUM 40 MG/0.4 ML SYRINGE SUBCUT SCH (21:38)
[2018-11-11 01:19] VITALS: BP_SYST 99
[2018-11-11] MEDS: HYDROcodone/ACETAMIN 5-325 MG TAB (NORCO/ VICODIN) PO PRN ×5 (01:58→22:55)
[2018-11-11] MEDS: VANCOMYCIN HCL 1,000 MG in NS 250 ML IV SCH ×3 (02:00→18:07)
[2018-11-11] MEDS: CLINDAMYCIN 600 MG in D5W 50 ML IV SCH ×3 (05:50→17:14)
[2018-11-11 08:00] VITALS: BP_SYST 92
[2018-11-11] MEDS: MUPIROCIN 2% TOPICAL OINTMENT 22 GM NS SCH ×2 (08:03→20:31)
[2018-11-11] MEDS: LIDOCAINE VISCOUS 2%, 15 ML UDC MM PRN ×2 (08:09→13:13)
[2018-11-11] MEDS ORDERED: RITONAVIR 100 MG CAPSULE (NORVIR) PO SCH (09:00)
[2018-11-11] MEDS ORDERED: EMTRICITABINE 200 MG CAPSULE PO SCH (09:00)
[2018-11-11] MEDS ORDERED: TENOFOVIR DISOPROXIL FUMARATE 300 MG TABLET(VIREAD) PO SCH (09:00)
[2018-11-11 11:06] VITALS: BP_SYST 102
[2018-11-11 15:23] VITALS: BP_SYST 94
[2018-11-11] MEDS: FLUCONAZOLE 200 mg/ NS 100 ML IV SCH (20:07)
[2018-11-11 20:13] VITALS: BP_SYST 99
[2018-11-11] MEDS: ENOXAPARIN SODIUM 40 MG/0.4 ML SYRINGE SUBCUT SCH (20:35)
[2018-11-12] VITALS: BP_SYST 102
[2018-11-12] MEDS: CLINDAMYCIN 600 MG in D5W 50 ML IV SCH (00:03)
== END 2018-11-12 00:45 | disposition short-term general hospital (02) | DRG 893 ==
LOC: SED 17:59 → SMU 21:36
PROVIDERS: ADMIT Family Medicine; ATTEND Family Medicine
DX: L03.113 Cellulitis of right upper limb (principal); B20 Human immunodeficiency virus [HIV] disease; C46.9 Kaposi's sarcoma, unspecified; E87.1 Hypo-osmolality and hyponatremia; L02.413 Cutaneous abscess of right upper limb; E44.1 Mild protein-calorie malnutrition; B95.62 Methicillin resistant Staphylococcus aureus infection as the cause of diseases classified elsewhere; K13.70 Unspecified lesions of oral mucosa; Z91.14 Patient's other noncompliance with medication regimen; Z68.1 Body mass index [BMI] 19.9 or less, adult; Z79.899 Other long term (current) drug therapy
CPT/HCPCS: 36415; 80048; 80053; 80202-TC; 83605; 85025; 85651-TC; 86480; 86635; 87040-TC; 87081; 87101; 87536; 87899; 96365; 96366; 96375; 99285; J1170; J1200; J1450; J1650; J2001; J2270; J2543; J3370; J3490; J7050; J7060; J8499

== ENCOUNTER 2019-01-18 20:43 | Inpatient (IN) | payer MEDICAID ==
[~2019-01-18] VITALS: Ht 167.6 cm; Wt 49.9 kg
[~2019-01-18 20:43] MED LIST changes: -CEPH-568 PO; +CLIN150C15 PO; +HYDR-3917 PO; -LOM2.5 PO; -SULF1TAB48 PO
[2019-01-18 21:00] VITALS: BP_SYST 120
--- NOTE | 2019-01-18 21:00 | NUR ---
Patient to ER bed 7 for evaluation. Side rails up. Report given to Katerine SALAS.
--- NOTE | 2019-01-18 21:10 | NUR ---
Pt brought by self, A&Ox4, pt presents to ER with R arm/abscess, fever and weakness, pt respirations even and unlabored, cap refill <3, VSS, pt follows commands.
--- NOTE | 2019-01-18 21:20 | NUR ---
Dr Sinclair at bedside examining patient
--- NOTE | 2019-01-18 21:45 | NUR ---
Pt A&Ox4, follows commands,respirations even and unlabored
[2019-01-18 21:59] LABS: MEAN CORPUSCULAR HEMOGLOBIN 31 pg (27-31); MEAN CORPUSCULAR VOLUME 92 fL (79.0-98.0); WHITE BLOOD COUNT (AUTO) 2.1 K/uL (4.8-10.8)
[2019-01-18] MEDS ORDERED: VANCOMYCIN HCL 1,000 MG in NS 250 ML IV ONE (22:00)
[2019-01-18 22:13] LABS: HEMATOCRIT 33.3 % (36-54); HEMOGLOBIN 11.1 g/dL (14.0-18.0); MEAN CORPUSCULAR HGB CONC 33 % (32-36); PLATELET COUNT (AUTO) 291 K/uL (130-430); RED CELL DISTRIBUTION WIDTH 14.3 % (9.0-15.0)
[2019-01-18 22:20] LABS: CREATININE 0.85 mg/dL (0.55-1.30); POTASSIUM 3.4 mmol/L (3.5-5.1)
[2019-01-18 22:23] LABS: PROTHROMBIN TIME 10.4 SECS (9.5-12.5)
[2019-01-18 22:29] LABS: BAND % (MANUAL) 22 % (0-6)
[2019-01-18 22:30] LABS: ATYPICAL LYMPHOCYTES % 0 % (0-0); BASOPHILS % (MANUAL) 0 % (0-2); EOSINOPHILS % (MANUAL) 0 % (0-7); LYMPHOCYTES % (MANUAL) 25 % (20-46); MONOCYTES % (MANUAL) 7 % (0-11)
[2019-01-18 22:41] LABS: TOTAL BILIRUBIN 0.2 mg/dL (0.0-1.0)
[2019-01-18] MEDS ORDERED: EMTR1TAB14 PO (22:43)
[2019-01-18] MEDS ORDERED: RITO100C2 PO (22:43)
[2019-01-18] MEDS ORDERED: MORPHINE 2 MG/ML INJ. SYRINGE IVP ONE (22:45)
[2019-01-18] MEDS ORDERED: PIPERACILLIN/TAZO 3.375 GM in NS 50 ML IV ONE ×2 (22:45)
[2019-01-18] MEDS ORDERED: ONDANSETRON HCL 4 MG/2 ML VIAL IVP PRN (22:45)
[2019-01-18] MEDS ORDERED: NACL 0.9% 1,000 ML IV ONE (22:45)
--- NOTE | 2019-01-18 22:45 | NUR ---
Medication reconciliation completed with information provided by patient. Any prior medication reconciliation on file was reviewed and corrected.
[2019-01-18] MEDS ORDERED: VANCOMYCIN HCL 1000 MG/VIAL IV ONE (22:46)
--- NOTE | 2019-01-18 22:50 | NUR ---
Note vidyamanish in EDM - 01/18/19 at 2333 by [email or web address] Pt brought by self, A&Ox4, pt presents to ER with R arm/abscess, fever and weakness, pt respirations even and unlabored, cap refill <3, VSS, pt follows commands.
[2019-01-18] MEDS ORDERED: PIPERACILLIN/TAZOBACTAM 3.375 GM/VIAL (ZOSYN) IV ONE (22:57)
[2019-01-18] MEDS ORDERED: MORPHINE 2 MG/ML INJ. SYRINGE IVP PRN (23:00)
[2019-01-18 23:03] LABS: BILIRUBIN,URINE NEGATIVE (NEGATIVE); BLOOD, URINE NEGATIVE (NEGATIVE); CLARITY/URINE CLEAR (CLEAR); COLOR,URINE YELLOW (YELLOW); GLUCOSE,URINE NEGATIVE (NEGATIVE); KETONES,URINE NEGATIVE (NEGATIVE); LEUKOCYTE ESTERASE ,URINE NEGATIVE (NEGATIVE); NITRITE, URINE NEGATIVE (NEGATIVE); PROTEIN URINE NEGATIVE (NEGATIVE); UROBILINOGEN,URINE 0.2 (0.2-1.0)
--- NOTE | 2019-01-18 23:20 | NUR ---
ADMISSION NOTE Received patient from ER via luis, received report from JOSUE rene. Patient admitted with diagnosis of right arm cellulitis. Patient oriented to hospital routine, call light, toileting and safety-patient verbalized understanding.
--- NOTE | 2019-01-18 23:20 | NUR ---
Note vincent in EDM - 01/18/19 at 2335 by [email or web address] Patient will be admitted to care of Dr Sinclair . Admitted to Tele unit. Will go to room 101B. Belongings list completed. Summary report printed. Report will be given at bedside.
[2019-01-18 23:23] LABS: BARBITURATE, URINE NEGATIVE (NEG <=200); BENZODIAZEPINE, URINE NEGATIVE (NEG <=150); CANNABINOID, URINE NEGATIVE (NEG <=50); COCAINE, URINE NEGATIVE (NEG <=150); METHAMPHETAMINES SCREEN,URINE POSITIVE (NEG <=500); OPIATE, URINE NEGATIVE (NEG <=100); PHENCYCLIDINE SCREEN,URINE NEGATIVE (NEG <=25); UR TRICYCLIC ANTIDEPRESSANTS NEGATIVE (NEG <=300); URINE AMPHETAMINE POSITIVE (NEG <=500); URINE METHADONE NEGATIVE (NEG <=200); URINE OXYCODONE SCREEN NEGATIVE (NEG <=100); URINE PROPOXYPHENE SCREEN NEGATIVE (NEG <=300)
[2019-01-18 23:25] VITALS: BP_SYST 110
[2019-01-18] MEDS ORDERED: POTASSIUM CHLORIDE 20 MEQ TAB.PRT.SR PO SCH (23:30)
[2019-01-18] MEDS ORDERED: FLU VACC QS2019-20 36MOS UP/PF 60 MCG/0.5 ML SYRINGE I.M. PRN (23:50)
--- NOTE | 2019-01-18 23:58 | NUR ---
CONSULTATION PAGED/CALLED Reason for Consultation: HIV, DRAINING ABCESS ARM Person Who was Notified: GARTH Consulting Physician: GUILLERMO Professor Of Engineering Specialty: ID Ordering Physician: KEVIN
--- NOTE | 2019-01-19 00:25 | NUR ---
ROUNDS [place] and water given. Ordered PO K-dur also given. No signs of acute distress noted. IVF infusing well. Safety precautions in place and call light with pt. Will continue to monitor.
[2019-01-19] MEDS: KCL 20 mEq in D5NS 1000 mL 1,000 ML IV SCH ×2 (00:28→11:04)
[2019-01-19] MEDS ORDERED: KCL 20 mEq in D5NS 1000 mL 1,000 ML IV ONE (00:38)
[2019-01-19 01:24] VITALS: BP_SYST 108
[2019-01-19] MEDS: ACETAMINOPHEN 325 MG TABLET PO PRN ×3 (02:11→22:21)
--- NOTE | 2019-01-19 02:11 | NUR ---
TEMP RECHECK Rechecked temperature orally and it was 100.2. Tylenol 650mg 2tabs PO given as ordered. Removed thick blanket and educated pt about it to prevent making his temp go higher. Pt also complained of right arm pain on wound area, educated pt that pain med is not due yet. Pt verbalized understanding. Will continue to monitor.
[2019-01-19] MEDS: MORPHINE 2 MG/ML INJ. SYRINGE IVP PRN ×2 (02:55→08:11)
--- NOTE | 2019-01-19 02:55 | NUR ---
PAIN MED Pt complained of right arm pain on wound area with a scale of 10/10. Morphine 2mg IVP given as ordered. Educated on safety and side effects like dizziness, pt verbalized understanding. No signs of acute distress or SOB noted. Safety precautions in place and call light with pt. Will continue to monitor.
--- NOTE | 2019-01-19 03:11 | NUR ---
TEMP RECHECK Pt is resting in bed with both eyes closed, with visible chest rise and fall with non-labored breathing noted. Pt is easily arousable. Rechecked pt's temp and is 99.2. No signs of acute distress noted. IVF infusing well. Will continue to monitor.
--- NOTE | 2019-01-19 05:58 | NUR ---
TEMP RECHECK Pt's temperature is 99. No complains of pain and no signs of acute distress noted. Will continue to monitor.
--- NOTE | 2019-01-19 06:24 | NUR ---
CLOSING NOTES Pt is resting in bed with both eyes closed, with visible chest rise and fall with non-labored breathing noted. IVF patent and infusing well. No complains of pain or discomfort at this time. No signs of acute distress or SOB noted. All needs attended throughout the shift. Safety precautions maintained with 3 side rails up, wheels locked, bed alarm on and in lowest level. Call light with pt. Will endorse to day shift nurse.
[2019-01-19 07:10] LABS: HEMATOCRIT 30.1 % (36-54); HEMOGLOBIN 10.1 g/dL (14.0-18.0); MEAN CORPUSCULAR HEMOGLOBIN 31 pg (27-31); MEAN CORPUSCULAR HGB CONC 33 % (32-36); MEAN CORPUSCULAR VOLUME 93 fL (79.0-98.0); PLATELET COUNT (AUTO) 249 K/uL (130-430); RED BLOOD CELL COUNT(AUTO) 3.25 MIL/uL (4.2-6.2); RED CELL DISTRIBUTION WIDTH 14.2 % (9.0-15.0); WHITE BLOOD COUNT (AUTO) 3.2 K/uL (4.8-10.8)
[2019-01-19 07:41] LABS: CREATININE 0.86 mg/dL (0.55-1.30); POTASSIUM 3.6 mmol/L (3.5-5.1)
[2019-01-19 08:00] LABS: CALCIUM 7.3 mg/dL (8.4-11.0)
--- NOTE | 2019-01-19 08:00 | NUR ---
RN INITIAL NOTES RECEIVED PATIENT IN BED NOT IN ANY DISTRESS PATIENT MOANS AND WANTS THE LIGHT OFF PATIENT HAD TYLENOL AND MORPHINE .PATIENT STATED "I WANNA SLEEP "WILL CONT CARE
[2019-01-19 08:30] VITALS: BP_SYST 111
[2019-01-19] MEDS: FAMOTIDINE 20 MG TABLET PO SCH (09:00)
--- NOTE | 2019-01-19 10:00 | NUR ---
PAIN MEDS PATIENT GIVEN PAIN MEDS AND TOLERATED SAFETY ENSURED
[2019-01-19 10:19] LABS: BAND % (MANUAL) 7 % (0-6); BASOPHILS % (MANUAL) 0 % (0-2); EOSINOPHILS % (MANUAL) 0 % (0-7); LYMPHOCYTES % (MANUAL) 11 % (20-46); MONOCYTES % (MANUAL) 1 % (0-11)
--- NOTE | 2019-01-19 12:00 | NUR ---
WOUND ASSESSMENT PATIENT SEEN BY CESILIA WOUND CONSULT ASSESSMENT DONE AND TX TO INITIATE ONCE MEDS AVAIL , PATIENT IS FOR SURGICAL CONSULT
--- NOTE | 2019-01-19 12:00 | NUR ---
WOUND EVALUATION: Late note for 1200 secondary to patient care. Wound Consult received from Dr. Ham. Thank you, Dr. Ham, for the consult. Patient received in a [place] Bed with a mattress, awake, alert, and oriented. Patient is unable to turn independently. Goran Score is a 20. Past Medical History: Longstanding history of HIV and diagnosis of Kaposi sarcoma. The patient stated that he was bitten by a mosquito on his right arm about a week ago, and which became worse, with discharge starting about 2 days ago. 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 Recent Labs: CBC 3.2, RBC 3.25, hemoglobin 10.1, hematocrit 30.1, ESR in progress, sodium 132, calcium 7.3, albumin 3.0. Microbiology: MRSA screen results in progress. Right forearm wound culture results in progress. Intrinsic factors that delay wound healing: HIV, Hypoalbuminemia. Extrinsic factors that delay wound healing: Decreased mobility. Wound Assessment: 1. Right lateral forearm: Abscess, present on admission. Wound bed has 10% red tissue, 90% yellow slough. No odor, moderate yellow purulent drainage. Periwound intact. Surrounding tissue has blanchable erythema, edema, calor, and induration. Wound measures 2.5 cm x 2.2 cm x 0.7 cm. 100% undermining present (0.4 cm at 12 o'clock, 0.4 cm at 3 o'clock, 1.1 cm 6 o'clock, 0.5 cm at 9 o'clock). Recommend: Cleanse wound with normal saline. Apply moisture barrier cream to mari-wound. Apply Venelex ointment to wound bed. Pack wound with 1/4 inch iodoform packing strip. Cover with foam dressing. Perform wound care daily, and as needed for dressing soiling or dislodgement. 2. Right anterior lateral wrist: Wound, possible abrasion, present on admission. Wound bed has 100% pink tissue. No odor, scant sanguineous drainage. Periwound intact. Wound measures 1.4 cm x 0.8 cm. Recommend: Cleanse wound with normal saline. Apply SurePrep to mari-wound. Apply Venelex ointment to wound bed. Cover with foam dressing. Perform wound care daily, and as needed for dressing soiling or dislodgement. 3. Posterior trunk/Right Buttock: Multiple, multiple circular lesions with black and red discoloration, present on admission. No odor, no drainage. 4. Right neck: Circular lesion with black and red discoloration, present on admission. No odor, no drainage. 5. Right anterior lateral forehead: Circular lesion with black and red discoloration, present on admission. No odor, no drainage. Recommend: No dressings needed. Continue to monitor sites every shift. Contact wound care nurse and physician if sites open or drain. Also recommend: Encourage and assist patient as needed with repositioning every 2 hours with pillow support and off-load pressure areas with pillows for pressure re-distribution. Offload, elevate and float bilateral heels with pillows. Perform skin care and monitor skin integrity Q shift.
[2019-01-19 12:20] VITALS: BP_SYST 92
[2019-01-19] MEDS ORDERED: BALSAM PERU/CASTOR OIL 60 GM OINT...G. TP ONE (12:30)
--- NOTE | 2019-01-19 14:00 | NUR ---
LOW BP PATIENT WAS NOT GIVEN IV PAIN SHOT BP IS LOW STARTED WITH 86/79 PLACED PATIENT ON TRENDELENBERG POSITION BUT STILL HI 92/67 EXPLAINED TO PATIENT , WILL CONT CARE INFORMED DR VALENCIA
--- NOTE | 2019-01-19 15:57 | NUR ---
Dietitian Recommendations * Recommend regular diet with Ensure Enlive TID (Provides additional 1050 kcal and 60 gm of protein/day) * Recommend snacks BID. * Encourage PO intake. ELMER, RD Please refer to Nutrition Assessment for details. Signed: 01/19/19 at 1559 by Cora HERNANDEZ <Co-Signature Required> Co-Signed: 01/19/19 at [address] Addendum: 01/19/19 at 1559 by Cora HERNANDEZ Amended: Links added.
--- NOTE | 2019-01-19 16:00 | NUR ---
DR MARSH /FEVER /NO FLU SHOT AT THIS TIME INFORMED DR MARSH PATIENT ON AND OFF WITH FEVER NO FLU SHOT A THIS TIME AND WILL START IV ATB
[2019-01-19 16:20] VITALS: BP_SYST 92
--- NOTE | 2019-01-19 17:00 | NUR ---
DR VALENCIA PATIENT SEEN AND DISCUSSED WITH DR VALENCIA WITH FEVER AND LOW BP AND NO PAIN IV SHOT GIVEN FOR NOW , DR CAMP SAID SHE WILL CALL SURGEON DR LEDESMA AND IF HE IS NOT AVAIL SHE WILL DO THE DEBRIDEMENT HERSELF AFTER DISCUSSION WITH WOUND CONDITION
[2019-01-19] MEDS: KCL 20 mEq in NS 1000 mL 1,000 ML IV SCH (17:15)
[2019-01-19] MEDS: CLINDAMYCIN 300 MG in D5W 50 ML IV SCH (18:29)
[2019-01-19] MEDS: FLUCONAZOLE 100 mg/ NS 50 ML IV SCH (18:30)
--- NOTE | 2019-01-19 18:40 | NUR ---
ENDORSEMENT WILL ENDORSE TO NEXT SHIFT CONT CAR E, PATIENT STARTED WITH DIFLUCAN AND CLEOCIN BY DR MARSH ,STILL WITH LOW BP READING 90/56 , WILL GIVE PAIN MEDS ONCE BP IS OK
--- NOTE | 2019-01-19 19:20 | NUR ---
RECEIVED REPORT FROM ROBERTO SALAS. PT LAYING IN BED WITH EYES CLOSED. NAD NOTED.
[2019-01-19 20:20] VITALS: BP_SYST 102
--- NOTE | 2019-01-19 22:20 | NUR ---
BP ASSESSED PRIOR TO PAIN MED ADMINISTRATION, MED NOT GIVEN. MORPHINE SULFATE 2MG WASTED W/ TRACTOR OPERATOR BATTERY DUE TO PT W/ LOW BP 91/54. IVF INFUSING PER ORDERS. PATIENT IS ANGRY RE: NO PAIN MED ADMINISTRATION.
[2019-01-19] MEDS ORDERED: VANCOMYCIN HCL 1,000 MG in NS 250 ML IV ONE (23:00)
--- NOTE | 2019-01-19 23:15 | NUR ---
MEDS GIVEN. BP BEING MONITORED, W/ CONTINUOS DIAST. BP DECREASING. AT PRESENT PATIENT WITH C/O PAIN AT L AC IV SITE, IV INFUSION STOPPED, IV SITE D/C'D.
--- NOTE | 2019-01-19 23:50 | NUR ---
NEW IV SITE IN PLACE 20G TO LEFT FA. PT TOLERATED WELL. BP W/ CONTINUES DECLINE PENDING RE-ASSESSMENT. PATIENT W/ C/O PAIN TO RIGHT ARM, LOCATION OF CELLULITIS. DUE TO LOW BP OF 93/46, UNABLE TO ADMINISTER ORDERED PAIN MED MORPHINE SULFATE 2 MG. TYLENOL 650MG PO GIVEN, WAS INEFFECTIVE.
[2019-01-20] VITALS (23 sets, daily range): BP systolic 81–110
--- NOTE | 2019-01-20 00:10 | NUR ---
PT ENDORSED: REPORT GIVEN TO HARRIS SALAS.
--- NOTE | 2019-01-20 00:38 | NUR ---
PAGED PAGED DR. BROWN
--- NOTE | 2019-01-20 00:40 | NUR ---
Received orders from Dr Ham, regarding BP in 80's. 250ml bolus and continue IV fluids as scheduled.
[2019-01-20] MEDS ORDERED: NS 250 ML IV ONE (00:45)
--- NOTE | 2019-01-20 01:00 | NUR ---
Received call back from Dr Ham, Insert sanchez catheter to monitor urine output. Transfer patient if Systolic BP less than 90.
[2019-01-20] MEDS: CLINDAMYCIN 300 MG in D5W 50 ML IV SCH ×4 (01:02→17:39)
[2019-01-20] MEDS: KCL 20 mEq in NS 1000 mL 1,000 ML IV SCH ×3 (01:04→17:39)
--- NOTE | 2019-01-20 01:31 | NUR ---
Doyle Catheter inserted. BP 101/54 HR 66
--- NOTE | 2019-01-20 01:50 | NUR ---
AT 0150 A.M, RECEIVED PATIENT FROM MED-SURG HARRIS Hernandez, PATIENT IS ALERT, ORIENTED X3, VERBAL RESPONSE ,ABLE TO MAKE NEEDS KNOWN, VITAL SIGN :TEMPERATURE 97.5.F, B.P 85/45 MMHG, RECHECK 89/49 MMHG, H.R 66 IS SINUS RHYTHM, RESPIRATORY RATE 16, O2 SAT. 100 % WITH ROOM AIR, URINE OUTPUT FROM CLAY CATHETER IS 120 ML, YELLOW CLEAR COLOR, GIVE PATIENT ENVIRONMENT ORIENTATION, CALL LIGHT IN REACH, RAILS UP, KEEP CLOSE MONITOR
--- NOTE | 2019-01-20 02:24 | NUR ---
MD VALENCIA Called [phone] Spoke to Hi[place]ot
--- NOTE | 2019-01-20 02:30 | NUR ---
REPORTED TO , ORDERED FOLLOW UP BLOOD CULTURE X 2 IN A.M LAB, GIVE 0.9% NORMAL SALINE IV BOLUS 250 ML X ONCE, IF SBP STILL LESS THAN 90 MMHG, ORDERED ON LEVOPHED DRIP
[2019-01-20] MEDS ORDERED: NACL 0.9% 250 ML IV ONE (02:45)
[2019-01-20] MEDS ORDERED: NOREPINEPHRINE 4 MG/4 ML VIAL IV ONE (03:17)
[2019-01-20] MEDS: NOREPINEPHRINE BITARTRATE 4 MG in D5W 246 ML IV PRN ×3 (03:31→22:14)
--- NOTE | 2019-01-20 03:35 | NUR ---
AT 0330 A.M, ORDERED START LEVOPHED DRIP, KEEP SBP > 90 MMHG
[2019-01-20 06:13] LABS: BASOPHILS % (AUTO) 0.8 % (0.0-2.0); EOSINOPHILS # (AUTO) 0.2 K/uL (0.0-0.4); EOSINOPHILS % (AUTO) 8.9 % (0.0-4.0); HEMATOCRIT 27.9 % (36-54); HEMOGLOBIN 9.2 g/dL (14.0-18.0); LYMPHOCYTES # (AUTO) 0.8 K/uL (1.0-5.5); LYMPHOCYTES % (AUTO) 31.1 % (20.5-51.5); MEAN CORPUSCULAR HEMOGLOBIN 31 pg (27-31); MEAN CORPUSCULAR HGB CONC 33 % (32-36); MEAN CORPUSCULAR VOLUME 93 fL (79.0-98.0); MONOCYTES # (AUTO) 0.2 K/uL (0.0-1.0); MONOCYTES % (AUTO) 7.8 % (1.7-9.3); NEUTROPHILS # (AUTO) 1.4 K/uL (1.8-7.7); NEUTROPHILS % (AUTO) 51.4 % (40.0-70.0); PLATELET COUNT (AUTO) 216 K/uL (130-430); RED CELL DISTRIBUTION WIDTH 14.4 % (9.0-15.0)
[2019-01-20 06:34] LABS: ALBUMIN 2.2 g/dL (3.4-4.8); CALCIUM 7.2 mg/dL (8.4-11.0); CREATININE 0.76 mg/dL (0.55-1.30); POTASSIUM 4.3 mmol/L (3.5-5.1); TOTAL BILIRUBIN 0.2 mg/dL (0.0-1.0)
--- NOTE | 2019-01-20 07:30 | NUR ---
Opening Note: Received plan of care via sbar from endorsing nurse Katalina SALAS. Completed patient round.
--- NOTE | 2019-01-20 07:31 | NUR ---
GIVE COMPLETE NURSING REPORT TO YAYO JOYCE R.N
[2019-01-20 08:35] LABS: WHITE BLOOD COUNT (AUTO) 2.7 K/uL (4.8-10.8)
[2019-01-20] MEDS: BALSAM PERU/CASTOR OIL 60 GM OINT...G. TP SCH (09:08)
[2019-01-20] MEDS: FAMOTIDINE 20 MG TABLET PO SCH (09:08)
--- NOTE | 2019-01-20 11:25 | NUR ---
Paged Dr. Raymond's office to report positive screen for MRSA.
--- NOTE | 2019-01-20 11:30 | NUR ---
Spoke to Dr. Carr to report positive screen for MRSA. No new orders. Dr. Carr will assess patient first.
--- NOTE | 2019-01-20 12:21 | NUR ---
Dr. Barriga at bedside. Received orders to DC Doyle catheter.
--- NOTE | 2019-01-20 12:55 | NUR ---
DC Doyle Catheter Removed Catheter and ensured to withdraw fluid from balloon. Patient tolerated without complication or complaints.
[2019-01-20] MEDS: FLUCONAZOLE 100 mg/ NS 50 ML IV SCH (18:49)
--- NOTE | 2019-01-20 19:18 | NUR ---
Closing Note Gave plan of care to receiving nurse Katalina via sbar.
--- NOTE | 2019-01-20 19:20 | NUR ---
RECIVED NURSING REPORT FROM DAY SHIFT MARIA DEL CARMEN Hernandez
[2019-01-20] MEDS: MORPHINE 2 MG/ML INJ. SYRINGE IVP PRN (20:02)
--- NOTE | 2019-01-20 21:50 | NUR ---
PATIENT IS ALERT, ORIENTED, CHIEF COMPLAINED HAD SEVERE INSOMNIA, REPORT TO Dr. BROWN, ORDERED GIVE AMBIEN 10 MG P.O Q H.S NEED
[2019-01-20] MEDS: ZOLPIDEM TARTRATE 5 MG TABLET PO PRN (22:12)
[2019-01-20] MEDS ORDERED: VANCOMYCIN HCL 1,250 MG in NS 250 ML IV SCH (23:00)
[2019-01-21] VITALS (24 sets, daily range): BP systolic 91–121
[2019-01-21] MEDS: CLINDAMYCIN 300 MG in D5W 50 ML IV SCH ×5 (00:01→23:19)
[2019-01-21] MEDS: KCL 20 mEq in NS 1000 mL 1,000 ML IV SCH ×3 (00:02→17:34)
[2019-01-21] MEDS: MORPHINE 2 MG/ML INJ. SYRINGE IVP PRN ×6 (00:03→23:18)
[2019-01-21] MEDS: NOREPINEPHRINE BITARTRATE 4 MG in D5W 246 ML IV PRN ×2 (06:42→15:34)
[2019-01-21 07:12] LABS: BASOPHILS % (AUTO) 0.4 % (0.0-2.0); EOSINOPHILS # (AUTO) 0.4 K/uL (0.0-0.4); EOSINOPHILS % (AUTO) 13.1 % (0.0-4.0); HEMATOCRIT 30.6 % (36-54); HEMOGLOBIN 10.2 g/dL (14.0-18.0); LYMPHOCYTES # (AUTO) 1.2 K/uL (1.0-5.5); LYMPHOCYTES % (AUTO) 43.1 % (20.5-51.5); MEAN CORPUSCULAR HEMOGLOBIN 31 pg (27-31); MEAN CORPUSCULAR HGB CONC 33 % (32-36); MEAN CORPUSCULAR VOLUME 92 fL (79.0-98.0); MONOCYTES # (AUTO) 0.2 K/uL (0.0-1.0); MONOCYTES % (AUTO) 7.6 % (1.7-9.3); NEUTROPHILS % (AUTO) 35.8 % (40.0-70.0); PLATELET COUNT (AUTO) 256 K/uL (130-430); RED BLOOD CELL COUNT(AUTO) 3.34 MIL/uL (4.2-6.2); RED CELL DISTRIBUTION WIDTH 14.1 % (9.0-15.0); WHITE BLOOD COUNT (AUTO) 2.7 K/uL (4.8-10.8)
[2019-01-21 07:18] LABS: CREATININE 0.65 mg/dL (0.55-1.30); POTASSIUM 4.2 mmol/L (3.5-5.1)
--- NOTE | 2019-01-21 07:30 | NUR ---
AT 0713 A.M, GIVE COMPLETE NURSING REPORT TO DAY SHIFT GARCIA Hernandez
--- NOTE | 2019-01-21 07:30 | NUR ---
Opening Note Patient received awake and resting in bed @ this time. Patient on cardiac cath lab radiology technologist with NSR. Patient on room air breathing evenly and unlabored. Patient in no signs of distress @ this time. Patient has a left hand and left forearm 20 gauge IV. Patient receiving D5 NS + 20 meq KCL @ 125 ml/hr and is on levophed @ 8 mcg/min. Patient uses urinal to void and voids clear yellow urine. Patient complains of 8/ pain @ this time on right arm. Safety precautions enforced. Addendum: 01/21/19 at 0905 by Araceli Villalobos RN Receiving NS + 20 meq KCL @ 125 ml/hr.
[2019-01-21] MEDS: FAMOTIDINE 20 MG TABLET PO SCH (08:22)
[2019-01-21 08:50] LABS: CALCIUM 7.8 mg/dL (8.4-11.0)
--- NOTE | 2019-01-21 11:25 | NUR ---
Wound Care Wound care performed as ordered. Patient tolerated well. No signs of distress noted.
--- NOTE | 2019-01-21 11:30 | NUR ---
CHG CHG bath given. Patient tolerated procedure well.
[2019-01-21] MEDS: BALSAM PERU/CASTOR OIL 60 GM OINT...G. TP SCH (11:39)
--- NOTE | 2019-01-21 12:30 | NUR ---
MD Rounds Dr. Carr @ bedside for assessment. New orders received and carried out.
[2019-01-21] MEDS: VANCOMYCIN HCL 750 MG in NS 250 ML IV SCH ×2 (12:53→22:38)
--- NOTE | 2019-01-21 15:30 | NUR ---
MD Rounds Dr. Barriga @ bedside for assessment. No new orders received.
[2019-01-21] MEDS: FLUCONAZOLE 100 mg/ NS 50 ML IV SCH (17:34)
--- NOTE | 2019-01-21 19:15 | NUR ---
AT 1915 P.M, RECEIVED NURSING REPORT FROM DAY SHIFT GARCIA Hernandez, PATIENT IS ALERT, ORIENTED, ON LEVOPHED DRIP 6 MCG/MIN, KEEP SBP > 90 MMHG
[2019-01-21] MEDS: ZOLPIDEM TARTRATE 5 MG TABLET PO PRN (21:07)
[2019-01-22] VITALS (23 sets, daily range): BP systolic 82–133
[2019-01-22] MEDS: KCL 20 mEq in NS 1000 mL 1,000 ML IV SCH ×3 (01:49→16:51)
[2019-01-22] MEDS: NOREPINEPHRINE BITARTRATE 4 MG in D5W 246 ML IV PRN ×3 (01:50→20:14)
[2019-01-22] MEDS: CLINDAMYCIN 300 MG in D5W 50 ML IV SCH ×3 (05:04→18:06)
[2019-01-22 05:50] LABS: HEMATOCRIT 30.7 % (36-54); HEMOGLOBIN 10.2 g/dL (14.0-18.0); MEAN CORPUSCULAR HEMOGLOBIN 31 pg (27-31); MEAN CORPUSCULAR HGB CONC 33 % (32-36); MEAN CORPUSCULAR VOLUME 92 fL (79.0-98.0); PLATELET COUNT (AUTO) 293 K/uL (130-430); RED BLOOD CELL COUNT(AUTO) 3.33 MIL/uL (4.2-6.2); RED CELL DISTRIBUTION WIDTH 14.4 % (9.0-15.0); WHITE BLOOD COUNT (AUTO) 2.3 K/uL (4.8-10.8)
[2019-01-22] MEDS: MORPHINE 2 MG/ML INJ. SYRINGE IVP PRN ×3 (05:59→20:14)
[2019-01-22 06:04] LABS: CREATININE 0.66 mg/dL (0.55-1.30)
[2019-01-22 06:35] LABS: CALCIUM 8.3 mg/dL (8.4-11.0)
--- NOTE | 2019-01-22 07:17 | NUR ---
GIVE COMPLETE NURSING REPORT TO DAY SHIFT PARKER Hernandez
--- NOTE | 2019-01-22 07:20 | NUR ---
Received pt alert and oriented. SB on monitor, rate 55. Pt has IVF infusing to left arm at 125cc/hr and levophed infusing at 6 mcgs. Pt has dressings noted to right arm. Lungs clear and sats good, 99%. HOB up. Urinal emptied for 200cc yellow urine. Will monitor patient.
[2019-01-22 07:39] LABS: ATYPICAL LYMPHOCYTES % 6 % (0-0); BASOPHILS % (MANUAL) 0 % (0-2); EOSINOPHILS % (MANUAL) 7 % (0-7); LYMPHOCYTES % (MANUAL) 42 % (20-46); MONOCYTES % (MANUAL) 16 % (0-11)
--- NOTE | 2019-01-22 08:15 | NUR ---
Levophed increased to 8 mcgs. for BP 82/50. Will continue to monitor. Pt sitting up in bed eating breakfast at this time. Voided yellow urine in urinal. SB on monitor.
[2019-01-22] MEDS: FAMOTIDINE 20 MG TABLET PO SCH (08:44)
--- NOTE | 2019-01-22 11:15 | NUR ---
Levophed increased to 9 mcgs for BP 92/53. Will continue to monitor.
[2019-01-22] MEDS: VANCOMYCIN HCL 750 MG in NS 250 ML IV SCH (11:21)
--- NOTE | 2019-01-22 11:37 | NUR ---
Family in to visit. Pt seen by casino floor runner and drank an ensure, prefers chocolate. SB rate 50. Levopehd at 9 mcgs. Will continue to monitor.
[2019-01-22] MEDS: ONDANSETRON HCL 4 MG/2 ML VIAL IVP PRN (12:11)
--- NOTE | 2019-01-22 12:45 | NUR ---
Pt vomited small amount of clear fluid. Medicated with zofran. Levophed remains at 9 mcgs. SB on monitor rate 55. Will continue to monitor.
--- NOTE | 2019-01-22 13:30 | NUR ---
Poor appetite for lunch. Sleeping.
--- NOTE | 2019-01-22 13:51 | NUR ---
Nutrition F/U RD reviewed pt's current EMR including diet Hx, physician notes, nursing notes, pertinent labs/meds/procedures, care trends and care activity. Current Diet Order: Regular diet w/ Ensure Enlive TID Subjective information: Pt seen for follow up. Complained of weakness, Ensure bottles at bedside, untouched. Pt reported that he does not like vanilla flavor and prefers chocolate flavored Ensure. RD notified [facility] staff and will note in [employer]. Pt was encouraged to increase PO intake. Per RN report, pt ate 100% of breakfast. Bed scale weight 113# 01/22. RD noted Otr Flatbed Driver note 01/19/19. Current PO intake: Fair 55% average of 3 meals Estimated Energy Expenditure (kcals/day) 7846-3747 kcal/day (30-35 kcal/kg IBW for sepsis and malnutrition) NEW Estimated Protein Required (g/day) 98-130 gm/day (1.5-2 gm/kg IBW for sepsis and wound healing) Estimated Fluid Required (l/day) 2-2.2 L/day (1 mL/kcal for adult maintenance) Problem/Etiology/Signs/Symptoms Malnutrition related to catabolic condition and lack of appetite as evidenced by 50% PO intake, BMI 18 kg/m2, and 77% IBW. (*ongoing) Increased nutrient needs r/t metabolic demands AEB estimated calorie and protein needs for sepsis and wound healing. (*new) Expected Outcomes/Goals - Monitor appetite and PO intake w/ goals of pt meeting greater than 65% of estimated nutritional needs, labs trending WNL, and skin integrity/wt maintenance. Dietitian Recommendations * Recommend regular diet with Ensure Enlive TID, Aryan BID (Provides additional 1210 kcal and 65 gm of protein/day) * Recommend snacks BID. * Encourage PO intake. Follow Up High Risk: F/U in 2-3days
--- NOTE | 2019-01-22 13:59 | NUR ---
Dietitian Recommendations * Recommend regular diet with Ensure Enlive TID, Aryan BID (Provides additional 1210 kcal and 65 gm of protein/day) * Recommend snacks BID. * Encourage PO intake. PLease see Nutrition F/U note for details. LAKESHA DIEHL
--- NOTE | 2019-01-22 15:30 | NUR ---
Sleeping most of afternoon. No c/o. Remains SB on monitor. Voiding, afebrile.
--- NOTE | 2019-01-22 16:37 | NUR ---
ROUNDS Dr. Ham at bedside for evaluation. Pt is still on levophed 7mcg. Awake, alert x4. Denies n/v, states "I feel fine right now".
[2019-01-22] MEDS: BALSAM PERU/CASTOR OIL 60 GM OINT...G. TP SCH (16:50)
[2019-01-22] MEDS: FLUCONAZOLE 100 mg/ NS 50 ML IV SCH (18:06)
--- NOTE | 2019-01-22 19:10 | NUR ---
PM SHIFT ASSESSMENT Pt is awake/alert but lethargic. Pt is on RA, RR even and unlabored. SB noted on monitor. Skin wounds noted, covered with dressing. Pt uses urinal to void. IV to RFA, IVF and Levophed infusing, no signs of infiltration noted. Call light within reach. Safety precautions in place. Will continue to monitor.
--- NOTE | 2019-01-22 19:30 | NUR ---
Report given to oncoming shift. No c/o. Poor apetite for dinner. No further nausea. Voiding. SB on monitor.
[2019-01-22] MEDS ORDERED: MORPHINE 4 MG/ML INJ. SYRINGE ONE (20:22)
[2019-01-22] MEDS: ZOLPIDEM TARTRATE 5 MG TABLET PO PRN (22:49)
[2019-01-22] MEDS: VANCOMYCIN HCL 1,000 MG in NS 250 ML IV SCH (22:49)
[2019-01-23] VITALS (24 sets, daily range): BP systolic 90–120
[2019-01-23] MEDS: KCL 20 mEq in NS 1000 mL 1,000 ML IV SCH ×3 (01:25→21:45)
[2019-01-23] MEDS: CLINDAMYCIN 300 MG in D5W 50 ML IV SCH ×5 (01:25→23:40)
[2019-01-23] MEDS: MORPHINE 2 MG/ML INJ. SYRINGE IVP PRN ×4 (05:09→20:37)
--- NOTE | 2019-01-23 06:25 | NUR ---
Pt complaining of itchiness to legs, no signs of rash or redness. Skin is dry and intact. Page to Dr. Ham, orders received for Benadryl. Will continue to monitor.
[2019-01-23] MEDS ORDERED: DIPHENHYDRAMINE HCL 50 MG CAPSULE PO SCH (06:45)
[2019-01-23] MEDS ORDERED: DIPHENHYDRAMINE HCL 25 MG CAPSULE ONE (07:07)
--- NOTE | 2019-01-23 07:20 | NUR ---
ENDORSEMENT Pt care endorsed to dayshift RN using nursing SBAR.
[2019-01-23 07:37] LABS: HEMOGLOBIN 10.6 g/dL (14.0-18.0)
[2019-01-23 07:47] LABS: CALCIUM 7.6 mg/dL (8.4-11.0); CREATININE 0.58 mg/dL (0.55-1.30); POTASSIUM 4.1 mmol/L (3.5-5.1)
--- NOTE | 2019-01-23 07:50 | NUR ---
AM ASSESSMENT. PT ALERT, ABLE TO MAKE NEEDS KNOWN, TRAY SERVED FOR BREAKFAST, PT DID NOT WANT ANYTHING FROM IT, BROUGHT HIM A BOTTLE OF ENSURE, HAD ONLY HALF OF ITS CONTENT.
[2019-01-23 08:00] LABS: HEMATOCRIT 31.9 % (36-54); MEAN CORPUSCULAR HEMOGLOBIN 30 pg (27-31); MEAN CORPUSCULAR HGB CONC 33 % (32-36); MEAN CORPUSCULAR VOLUME 92 fL (79.0-98.0); PLATELET COUNT (AUTO) 311 K/uL (130-430); RED BLOOD CELL COUNT(AUTO) 3.47 MIL/uL (4.2-6.2); RED CELL DISTRIBUTION WIDTH 14.3 % (9.0-15.0)
[2019-01-23 08:10] LABS: WHITE BLOOD COUNT (AUTO) 1.7 K/uL (4.8-10.8)
[2019-01-23] MEDS: FAMOTIDINE 20 MG TABLET PO SCH (08:35)
[2019-01-23] MEDS: BALSAM PERU/CASTOR OIL 60 GM OINT...G. TP SCH (08:37)
[2019-01-23 09:21] LABS: ATYPICAL LYMPHOCYTES % 6 % (0-0); BASOPHILS % (MANUAL) 0 % (0-2); EOSINOPHILS % (MANUAL) 15 % (0-7); LYMPHOCYTES % (MANUAL) 34 % (20-46); MONOCYTES % (MANUAL) 9 % (0-11)
[2019-01-23] MEDS: NOREPINEPHRINE BITARTRATE 4 MG in D5W 246 ML IV PRN ×2 (09:30→21:45)
--- NOTE | 2019-01-23 10:03 | NUR ---
PAIN. PT VERBALIZED OF TENDERNESS TO LEFT WRIST AND RIGHT FOREARM WOUND PAIN, 7/10 SCALE, MORPHINE 2 MG IVP GIVEN.
--- NOTE | 2019-01-23 11:00 | NUR ---
REST. PT JUST LYING DOWN QUIETLY IN BED, BROUGHT HIM WET WIPES FOR HYGIENE. PT NOT INTERESTED ON ANYTHING.
[2019-01-23] MEDS: VANCOMYCIN HCL 1,000 MG in NS 250 ML IV SCH (11:23)
--- NOTE | 2019-01-23 15:40 | NUR ---
. DR BROWN WENT TO SEE PATIENT. PT ON LEVOPHED DRIP AT 6 MCG/MIN.
--- NOTE | 2019-01-23 15:51 | NUR ---
PAIN. PT ASKED FOR PAIN MEDS FOR WOUND PAIN TO RIGHT ARM, ADMINISTERED MORPHINE 2 MG IVP.
--- NOTE | 2019-01-23 16:23 | NUR ---
CONSULT SURGERY DR. ANDRADE CALLED SPOKE TO JOLANTA DIALED [phone] BROWN
[2019-01-23] MEDS ORDERED: *CUBICIN 4 MG/KG Q24H/PHARMACY XX PRN (16:30)
[2019-01-23] MEDS: NS IV SCH (18:05)
[2019-01-23] MEDS: DAPTOMYCIN IV SCH (18:05)
[2019-01-23] MEDS: FLUCONAZOLE 100 mg/ NS 50 ML IV SCH (18:19)
--- NOTE | 2019-01-23 19:10 | NUR ---
AT 1910 P.M, RECEIVED NURSING REPORT FROM DAY SHIFT DORA Hernandez
--- NOTE | 2019-01-23 20:20 | NUR ---
SEE PATIENT,S RIGHT ARM WOUNDS FOR NEW CONSULT
[2019-01-23] MEDS: ZOLPIDEM TARTRATE 5 MG TABLET PO PRN (20:36)
--- NOTE | 2019-01-23 22:07 | NUR ---
ORDERED ON SCD FOR PATIENT
[2019-01-24] VITALS (24 sets, daily range): BP systolic 84–113
[2019-01-24] MEDS: KCL 20 mEq in NS 1000 mL 1,000 ML IV SCH ×3 (00:30→16:10)
[2019-01-24] MEDS: MORPHINE 2 MG/ML INJ. SYRINGE IVP PRN ×5 (02:33→20:34)
[2019-01-24] MEDS: CLINDAMYCIN 300 MG in D5W 50 ML IV SCH (05:23)
[2019-01-24] MEDS: ACETAMINOPHEN 325 MG TABLET PO PRN (06:11)
--- NOTE | 2019-01-24 07:15 | NUR ---
Opening Note Patient received awake and alert. Patient on tax assistant with NSR. Patient on room air breathing evenly and unlabored. No signs of distress noted. Patient has a right AC 20 IV infusing levophed @ 6 mcg/min. Patient also has a left AC 20 IV infusing NS + 20 meq KCl @ 125 ml/hr. Patient voids freely. Patient complains of pain @ this time. Safety precautions enforced.
--- NOTE | 2019-01-24 07:15 | NUR ---
GIVE COMPLETE NURSING REPORT TO DAY SHIFT GARCIA Hernandez
[2019-01-24] MEDS: FAMOTIDINE 20 MG TABLET PO SCH (08:21)
[2019-01-24] MEDS: NOREPINEPHRINE BITARTRATE 4 MG in D5W 246 ML IV PRN ×2 (08:47→20:23)
--- NOTE | 2019-01-24 10:50 | NUR ---
Neutropenic Precautions Per Dr. Olivera, patient to be placed on neutropenic precautions until WBC's increase. Sign placed outside of patient's room.
[2019-01-24] MEDS ORDERED: CEFEPIME 1 GM in D5W 50 ML IV ONE (11:00)
--- NOTE | 2019-01-24 12:00 | NUR ---
Wound Care Wound care performed as ordered. Patient tolerated procedure well. No signs of distress noted.
[2019-01-24] MEDS: BALSAM PERU/CASTOR OIL 60 GM OINT...G. TP SCH (12:03)
--- NOTE | 2019-01-24 12:15 | NUR ---
Home meds Patient stated that he has informed family to bring his home medications but that they cannot find it. RN educated regarding importance of medication compliance. Patient verbalized understanding.
--- NOTE | 2019-01-24 12:30 | NUR ---
CHG CHG performed and linens changed. Patient tolerated procedure well.
--- NOTE | 2019-01-24 13:50 | NUR ---
MD Rounds Dr. Ham @ bedside. No new orders received.
--- NOTE | 2019-01-24 14:55 | NUR ---
DC PLANNING: LARA SPOKE WITH SELAM (LARA @ [facility]) @ [phone], F REGARDING INPATIENT DENIAL. PER SELAM, POSSIBLE DENIAL IS DUE TO NON NOTIFICATION OF ADMISSION OR NO CLINICAL RECEIVED. CM PROVIDED CLINICAL INFORMATION. PER SELAM, SHE WILL BE REVIEWING THE CASE. LARA ALSO INFORMED SELAM MD ORDERED TRANSFER TO [facility] FOR ONGOING TREATMENT. SELAM ADVICE CM TO FAX CLINICAL AND ORDER TO f AND TO [facility] AT F CM FAXED CLINICAL PACKETS TO BOTH LARA (SELAM) AND [facility]. CM TO FOLLOW UP WITH TRANSFER.
[2019-01-24] MEDS: FLU VACC QS2019-20 36MOS UP/PF 60 MCG/0.5 ML SYRINGE I.M. PRN (16:30)
--- NOTE | 2019-01-24 17:20 | NUR ---
RN Update Called patient's sister to follow-up on bringing home medications. She stated that she cannot make it today but that she will bring it tomorrow morning.
[2019-01-24] MEDS: NS IV SCH (17:25)
[2019-01-24] MEDS: DAPTOMYCIN IV SCH (17:25)
--- NOTE | 2019-01-24 19:10 | NUR ---
RECEIVED NURSING REPORT FROM YAYO ZELAYA R.N
--- NOTE | 2019-01-24 19:14 | NUR ---
Closing Note Patient endorsed to shift foreman RN using SBAR format. Patient in no signs of distress. Patient able to ambulate to the bathroom. Patient back in bed and is connected back to monitor.
[2019-01-24] MEDS: ONDANSETRON HCL 4 MG/2 ML VIAL IVP PRN (19:27)
[2019-01-24] MEDS: ZOLPIDEM TARTRATE 5 MG TABLET PO PRN (20:25)
[2019-01-24] MEDS: CEFEPIME 1 GM in D5W 50 ML IV SCH (20:25)
--- NOTE | 2019-01-24 20:36 | NUR ---
AT 2022 B.P 83/50 [facility], H.R 63, RECHECK 81/47,H.R 47. PATIENT CHIEF COMPLAIN STILL FEEL NAUSEA ( WAS GIVE ZOFRAN 4 MG ) ORDERED RESTART LEVOPHED DRIP START 2 MCG/MIN, KEEP SBP > 80-90 MM[facility], KEEP CLOSE MONITOR
--- NOTE | 2019-01-24 21:50 | NUR ---
AT 2147 P.M, PATIENT IS ALERT, ORIENTED X 4, B.P 70/37 MMHG,H.R 48, RECHECK B.P 71/35 MM[facility], ORDERED INCREASE LEVOPHED DRIP TO 4 MCG/MIN KEEP SBP > 80-90 MM[facility]
[2019-01-25] VITALS (24 sets, daily range): BP systolic 77–127
[2019-01-25] MEDS: KCL 20 mEq in NS 1000 mL 1,000 ML IV SCH ×3 (00:48→17:53)
[2019-01-25] MEDS: MORPHINE 2 MG/ML INJ. SYRINGE IVP PRN ×5 (02:02→22:16)
[2019-01-25 05:34] LABS: BASOPHILS % (AUTO) 0.6 % (0.0-2.0); EOSINOPHILS # (AUTO) 0.2 K/uL (0.0-0.4); EOSINOPHILS % (AUTO) 7.2 % (0.0-4.0); HEMATOCRIT 30.9 % (36-54); HEMOGLOBIN 10.2 g/dL (14.0-18.0); LYMPHOCYTES # (AUTO) 0.9 K/uL (1.0-5.5); LYMPHOCYTES % (AUTO) 39.4 % (20.5-51.5); MEAN CORPUSCULAR HEMOGLOBIN 30 pg (27-31); MEAN CORPUSCULAR HGB CONC 33 % (32-36); MEAN CORPUSCULAR VOLUME 92 fL (79.0-98.0); MONOCYTES # (AUTO) 0.3 K/uL (0.0-1.0); MONOCYTES % (AUTO) 11.8 % (1.7-9.3); PLATELET COUNT (AUTO) 339 K/uL (130-430); RED BLOOD CELL COUNT(AUTO) 3.36 MIL/uL (4.2-6.2); RED CELL DISTRIBUTION WIDTH 14.3 % (9.0-15.0); WHITE BLOOD COUNT (AUTO) 2.2 K/uL (4.8-10.8)
[2019-01-25 05:50] LABS: NEUTROPHILS # (AUTO) 0.9 K/uL (1.8-7.7)
--- NOTE | 2019-01-25 07:32 | NUR ---
RN OPENING NOTE RECEIVED SBAR REPORT AT BEDSIDE. OPPORTUNITY TO HAVE QUESTIONS ANSWERED PROVIDED. SEE VS FLOW SHEET
--- NOTE | 2019-01-25 07:33 | NUR ---
GIVE COMPLETE NURSING REPORT TO DAY SHIFT DANIAL Hernandez
[2019-01-25] MEDS: FAMOTIDINE 20 MG TABLET PO SCH (08:38)
[2019-01-25] MEDS: CEFEPIME 1 GM in D5W 50 ML IV SCH ×2 (08:39→21:10)
[2019-01-25] MEDS: BALSAM PERU/CASTOR OIL 60 GM OINT...G. TP SCH (10:14)
[2019-01-25] MEDS: NOREPINEPHRINE BITARTRATE 4 MG in D5W 246 ML IV PRN (11:00)
[2019-01-25] MEDS ORDERED: MIDODRINE HCL 5 MG TABLET (PROAMATINE) PO ONE (11:30)
[2019-01-25] MEDS: SULFAMETHOXAZOLE/TRIMETHOPR DS 1 TABLET PO SCH (12:24)
--- NOTE | 2019-01-25 13:31 | NUR ---
Case mgt: Left message for Zay Costa-printer operator at [place] at [phone] to call me regarding transfer to contracted hospital for higher level of care ongoing treatment of Karposi's sarcoma--Per Alyce, pt was still on Levophed at 6mcg still. CECILE RN
--- NOTE | 2019-01-25 14:30 | NUR ---
DR. BROWN AT BEDSIDE
--- NOTE | 2019-01-25 14:36 | NUR ---
Nutrition F/U RD reviewed pt's current EMR including diet Hx, physician notes, nursing notes, pertinent labs/meds/procedures, care trends, and care activity. Current Diet Order: Regular diet w/ Ensure Enlive TID, Aryan BID x3 days Subjective information: Pt seen resting in bed, reported good appetite, tolerating diet well, and stated that he has been eating most foods w/ meals, as well as drinking Ensure (though he prefers to only receive ONS 1-2x/day as sometimes it causes him nausea). Pt was also encouraged to take Aryan BID -- modular seen unopened at bedside. RD stressed importance of lean muscle mass maintenance/rebuilding w/ ample nutrition. Pt denied any current N/V/C/D, and reported that he has also been enjoying the snacks in-between meals. RN reported that pt may be transferred to another hospital for higher level of care d/t Dx of CA (Karposi's sarcoma). Current PO intake: 60% average x4 meals -- fair, consistent w/ last RD visit Estimated Energy Expenditure (kcals/day) 6095-3795 kcal/day (30-35 kcal/kg IBW for sepsis and malnutrition) Estimated Protein Required (g/day) 98-130 gm/day (1.5-2 gm/kg IBW for sepsis and wound healing) Estimated Fluid Required (l/day) 2-2.2 L/day (1 mL/kcal for adult maintenance) Problem/Etiology/Signs/Symptoms Malnutrition related to catabolic condition and lack of appetite as evidenced by 50% PO intake, BMI 18 kg/m2, and 77% IBW. (*ongoing) Increased nutrient needs r/t metabolic demands AEB estimated calorie and protein needs for sepsis and wound healing. (*ongoing) Expected Outcomes/Goals - Monitor appetite and PO intake w/ goals of pt meeting greater than 65% of estimated nutritional needs, labs trending WNL, and skin integrity/wt maintenance. Dietitian Recommendations * Recommend regular diet with Ensure Enlive BID, Aryan BID (Provides additional 860 kcal and 45 gm of protein/day) * Recommend continuing snacks BID * Encourage PO intake Follow Up High Risk: F/U in 2-3 days
--- NOTE | 2019-01-25 14:48 | NUR ---
Dietitian Recommendations * Recommend regular diet with Ensure Enlive BID, Aryan BID (Provides additional 860 kcal and 45 gm of protein/day) * Recommend continuing snacks BID * Encourage PO intake LP, RD Please refer to Nutrition F/U for details.
--- NOTE | 2019-01-25 15:00 | NUR ---
CHG BATH PROVIDED
[2019-01-25] MEDS: ONDANSETRON HCL 4 MG/2 ML VIAL IVP PRN (15:24)
--- NOTE | 2019-01-25 15:45 | NUR ---
Wound care provided
[2019-01-25] MEDS: DAPTOMYCIN IV SCH (17:53)
[2019-01-25] MEDS: NS IV SCH (17:53)
--- NOTE | 2019-01-25 20:00 | NUR ---
ASSESSMENT Pt resting quietly. Pt on room air. IV left AC 20ga. Saline lock right lateral AC 20ga. no redness or swelling at sites. No c/o right upper extremity pain. Right upper arm with 2 wound sites. Right elbow and right anterior wrist dressing intact. Pt in reverse isolation.
[2019-01-25] MEDS: MIDODRINE HCL 5 MG TABLET (PROAMATINE) PO SCH (21:09)
[2019-01-25] MEDS: MUPIROCIN 2% TOPICAL OINTMENT 22 GM TP SCH (21:10)
[2019-01-25] MEDS: ZOLPIDEM TARTRATE 5 MG TABLET PO PRN (22:17)
[2019-01-26] VITALS (11 sets, daily range): BP systolic 83–96
--- NOTE | 2019-01-26 01:24 | NUR ---
SCD SCD not in use per pt. Pt educated on the need for SCD, pt continues to refuse.
[2019-01-26] MEDS: FLU VACC QS2019-20 36MOS UP/PF 60 MCG/0.5 ML SYRINGE I.M. PRN (04:53)
[2019-01-26] MEDS: MORPHINE 2 MG/ML INJ. SYRINGE IVP PRN ×4 (05:17→18:30)
[2019-01-26] MEDS: KCL 20 mEq in NS 1000 mL 1,000 ML IV SCH ×3 (05:18→21:53)
--- NOTE | 2019-01-26 06:05 | NUR ---
TRANSFER TELE Pt transferred to room 134A via bed. All medications and pt belongs sent with patient. Pt was medicated for right arm pain /, pt stated pain medication effective. SBP greater than 90. Pt oriented to room and surroundings.
--- NOTE | 2019-01-26 06:15 | NUR ---
TRANSFER NOTES; pt. transferred from ICU via bed with nurse Carole giving report. pt. awake, alert and oriented. on contact isolation for MRSA nares and reverse isoaltion. pt. came in for rt. arm abscess with diagnosis of cellulitis, rt. arm swollen.IV resume via left arm IV site with NS plus 20 meq KCL @ 100 cc/hr. moves all extremities. reoriented to room and use of call light and verbalized understanding. for further care and assistance. placed on manager monitoring and shows sinus rhythm.will endorse to day shift.
[2019-01-26] MEDS: FAMOTIDINE 20 MG TABLET PO SCH (07:57)
[2019-01-26] MEDS: CEFEPIME 1 GM in D5W 50 ML IV SCH ×2 (07:57→20:09)
[2019-01-26] MEDS: MIDODRINE HCL 5 MG TABLET (PROAMATINE) PO SCH ×2 (07:57→20:10)
[2019-01-26] MEDS: BALSAM PERU/CASTOR OIL 60 GM OINT...G. TP SCH (07:58)
--- NOTE | 2019-01-26 08:00 | NUR ---
A/OX4. SB ON MONITOR. ON ROOM AIR. BP IS AT 84 SBP; PROAMANTINE IS GIVEN TO SUPPORT BLOOD PRESSURE. CALL LIGHT IN PLACE, BED LOCKED AT THE LOWEST POSITION, WILL CONTINUE TO MONITOR.
--- NOTE | 2019-01-26 10:20 | NUR ---
BP 94/51. NO SIGNS OF DISTRESS NOTED.
[2019-01-26] MEDS: MUPIROCIN 2% TOPICAL OINTMENT 22 GM TP SCH ×2 (10:53→20:11)
[2019-01-26] MEDS: SULFAMETHOXAZOLE/TRIMETHOPR DS 1 TABLET PO SCH (10:54)
--- NOTE | 2019-01-26 11:10 | NUR ---
WOUND CARE IS COMPLETED FOR THE PATIENT. TOLERATED WITHOUT DISTRESS.
--- NOTE | 2019-01-26 13:18 | NUR ---
PATIENT FINISHES LUNCH. TOLERATED WITHOUT DISTRESS.
--- NOTE | 2019-01-26 14:50 | NUR ---
PATIENT C/O PAIN ON THE RIGHT ARM. MORPHINE 2MG IVP.
--- NOTE | 2019-01-26 16:15 | NUR ---
DC Planning: Per dr. Ham: pt. still needs transferring to insurance network: pt's status is tele, not on Levophed at this time but blood pressure is unstable and may dropped anytime. The pt will need wound I/D, and is on 2 kinds of IV ABX. LARA updated LARA Farris at [facility] # [phone] who stated " the pt probably not be transferred this weekend. She will follow up on Tuesday. She is sending a new transfer [facility], isolation bed. The inpt at [facility] is approved from admission and so forth.
[2019-01-26] MEDS: NS IV SCH (17:28)
[2019-01-26] MEDS: DAPTOMYCIN IV SCH (17:28)
--- NOTE | 2019-01-26 18:30 | NUR ---
PATIENT IS DONE WITH DINNER. TOLERATED WITHOUT DISTRESS.
--- NOTE | 2019-01-26 19:10 | NUR ---
PM ASSESSMENT Pt in bed with eyes open resting comfortably, no signs of acute distress or discomfort noted. Even and unlabored breathing noted at this time. Pt A&O x4. Pt doesn't verbalize any needs at this time. IV sites patent, c/d/i, infusing IV fluid at this time. Reverse isolation precautions noted. Bed is locked and in lowest position, call light within reach, will cont to monitor pt.
[2019-01-26] MEDS: ZOLPIDEM TARTRATE 5 MG TABLET PO PRN (21:52)
[2019-01-27] VITALS (9 sets, daily range): BP systolic 80–95
--- NOTE | 2019-01-27 00:14 | NUR ---
Pt in bed with eyes closed resting comfortably, no signs of acute distress or discomfort noted. Bed is locked and in lowest position, call light within reach, will cont to monitor pt.
[2019-01-27] MEDS: MORPHINE 2 MG/ML INJ. SYRINGE IVP PRN (02:27)
[2019-01-27] MEDS: ONDANSETRON HCL 4 MG/2 ML VIAL IVP PRN ×3 (02:54→21:56)
--- NOTE | 2019-01-27 03:50 | NUR ---
Helped pt to bathroom at this time. Pt tolerated well. Helped pt back into bed, no signs of acute distress or discomfort noted. Will cont to monitor pt.
--- NOTE | 2019-01-27 06:15 | NUR ---
Pt resting in bed comfortably with eyes closed. No signs of acute distress or discomfort noted. Pt doesn't verbalize any needs at this time. Bed is locked and in lowest position, call light within reach, will cont to monitor pt.
--- NOTE | 2019-01-27 07:05 | NUR ---
ENDORSEMENT Report given to oncoming dayshift RN and pt care was endorsed. No signs of acute distress or discomfort noted.
[2019-01-27 07:20] LABS: BASOPHILS % (AUTO) 0.6 % (0.0-2.0); EOSINOPHILS # (AUTO) 0.1 K/uL (0.0-0.4); EOSINOPHILS % (AUTO) 5.7 % (0.0-4.0); HEMATOCRIT 30.9 % (36-54); HEMOGLOBIN 10.2 g/dL (14.0-18.0); LYMPHOCYTES # (AUTO) 0.8 K/uL (1.0-5.5); LYMPHOCYTES % (AUTO) 38.4 % (20.5-51.5); MEAN CORPUSCULAR HEMOGLOBIN 31 pg (27-31); MEAN CORPUSCULAR HGB CONC 33 % (32-36); MEAN CORPUSCULAR VOLUME 93 fL (79.0-98.0); MONOCYTES # (AUTO) 0.3 K/uL (0.0-1.0); MONOCYTES % (AUTO) 12.6 % (1.7-9.3); PLATELET COUNT (AUTO) 337 K/uL (130-430); RED BLOOD CELL COUNT(AUTO) 3.33 MIL/uL (4.2-6.2); RED CELL DISTRIBUTION WIDTH 14.1 % (9.0-15.0); WHITE BLOOD COUNT (AUTO) 2.1 K/uL (4.8-10.8)
--- NOTE | 2019-01-27 07:50 | NUR ---
opening note patient is resting in bed, patient's BP was low and taken three times, medications were given to help blood pressure support, educated on medication uses and side effects, patient verbalized understanding and tolerated well, educated patient that due to his low BP I cannot give him his prn morphine due to it can decrease it more, patient verbalized understanding, patient alert and oriented, educated on plan of care and call light system, patient verbalized understanding, IV fluids running and tolerating well, fall/safety and isolation precautions in place.
[2019-01-27] MEDS: MUPIROCIN 2% TOPICAL OINTMENT 22 GM TP SCH ×2 (07:57→21:47)
[2019-01-27] MEDS: MIDODRINE HCL 5 MG TABLET (PROAMATINE) PO SCH ×2 (07:57→21:46)
[2019-01-27] MEDS: FAMOTIDINE 20 MG TABLET PO SCH (07:57)
[2019-01-27] MEDS: CEFEPIME 1 GM in D5W 50 ML IV SCH ×2 (07:57→21:46)
[2019-01-27] MEDS: KCL 20 mEq in NS 1000 mL 1,000 ML IV SCH ×2 (07:57→17:22)
[2019-01-27] MEDS: BALSAM PERU/CASTOR OIL 60 GM OINT...G. TP SCH (07:58)
[2019-01-27 08:53] LABS: NEUTROPHILS # (AUTO) 0.9 K/uL (1.8-7.7); NEUTROPHILS % (AUTO) 42.7 % (40.0-70.0)
--- NOTE | 2019-01-27 09:10 | NUR ---
rechecked BP BP was rechecked, spoke to Dr Ham on the phone and Dr Ham will put in new orders for patient, no more IV morphine for patient due to his low BP.
[2019-01-27] MEDS ORDERED: IBUPROFEN 400 MG TABLET PO ONE (09:45)
[2019-01-27] MEDS ORDERED: SULF1TAB48 PO (09:47)
[2019-01-27] MEDS ORDERED: DOXY100T2 PO (09:48)
[2019-01-27] MEDS ORDERED: MIDO10TA PO (09:49)
--- NOTE | 2019-01-27 10:43 | NUR ---
DC Planning: request HH set up with Kaleigh at [facility]. LVM to # [phone] for her return call megan. Addendum: 01/27/19 at 1338 by Ally Batista RN Late entry @1100: s/w TRACY Richards for not able to get the HH set up yet d/t [facility] is closed for the weekend, unable to get the auth for HH set up. Susie will call dr. Ham for the okay to dc pt home today with wound care supplies and to set up the HH on Tuesday. CM to f/u.
[2019-01-27] MEDS: SULFAMETHOXAZOLE/TRIMETHOPR DS 1 TABLET PO SCH (11:59)
--- NOTE | 2019-01-27 12:00 | NUR ---
wound care patient requested for wound care to be done at this time, wound care done per orders, patient tolerated well, educated patient on how to do wound care during the process, patient was able to verbalize back the step, no other needs at this time, IV fluids running, fall/safety precautions in place.
[2019-01-27] MEDS: ACETAMINOPHEN 325 MG TABLET PO PRN (13:37)
--- NOTE | 2019-01-27 13:37 | NUR ---
prn tylenol patient is resting in bed, educated on medication use and side effects, patient verbalized understanding, no other needs addressed at this time, fall/safety precautions in place.
[2019-01-27] MEDS: traMADol HCL HCL 50 MG TABLET (ULTRAM) PO PRN (15:36)
--- NOTE | 2019-01-27 15:36 | NUR ---
prn ultram patient is resting in bed, educated on medication use and side effects, patient verbalized understanding, no other needs addressed at this time, fall/safety precautions in place.
[2019-01-27] MEDS: NS IV SCH (17:20)
[2019-01-27] MEDS: DAPTOMYCIN IV SCH (17:20)
--- NOTE | 2019-01-27 17:20 | NUR ---
cubicin patient is resting in bed, educated on medication use and side effects, patient verbalized understanding, no other needs addressed at this time, fall/safety precautions in place, isolation precautions in place.
--- NOTE | 2019-01-27 19:06 | NUR ---
closing note patient is resting in bed, educated patient that due to his low BP there are certain pain medications he cannot get, patient verbalized understanding, patient alert and oriented, IV fluids running and tolerating well, fall/safety and isolation precautions in place, will endorse report to [facility] nurse to continue with care, patient's has low BP and doctors are aware, patient can ambulate to bathroom with assist, Dr Barriga covered Dr Ham today and he wants patient to be discharge until home health can safely be at this house with confirmation the next day.
--- NOTE | 2019-01-27 19:20 | NUR ---
Opening note Received patient, awake, AO x4, resting in bed. IVF infusing via IV LFA. IV to RAC is SL. Bed is locked to lowest position, bed alarm on and call light w/in reach.
[2019-01-27] MEDS: ZOLPIDEM TARTRATE 5 MG TABLET PO PRN (21:46)
--- NOTE | 2019-01-27 21:46 | NUR ---
Due medications / Zofran Due medications given and also zofran for c/o nausea.
--- NOTE | 2019-01-28 01:47 | NUR ---
OOB / BM Patient's bed alarm off, assessed and patient want's to go to restroom. He ambulated to restroom, had bowel movement. His bed linen was changed. Nurse biology research assistant assisted him with partial bed bath, and oral hygiene.
--- NOTE | 2019-01-28 02:45 | NUR ---
BM Patient called for assistance to restroom, SCD's were disconnected, bed alarm off and he ambulated self with steady gait to restroom. He reports had a loose formed bowel movement. He states his stomach feels better, now after BM and would like to sleep. Bed alarm on, SCD's on and call light w/in reach.
--- NOTE | 2019-01-28 04:12 | NUR ---
MD Dr. Barriga notified patient has had four episodes of loose stool. He ordered Imodium 4mg PO, TID, PRN diarrhea. Did not order C-diff stool culture.
[2019-01-28] MEDS: LOPERAMIDE HCL 2 MG CAPSULE PO PRN (04:58)
--- NOTE | 2019-01-28 04:58 | NUR ---
Imodium Patient called for assistance to restroom for another episode of BM. SCD's were disconnected, bed alarm off and he ambulated self with steady gait to restroom. He reports had a loose formed bowel movement. He was administered Imodium prn as ordered. Bed alarm on, SCD's on and call light w/in reach. Will continue to monitor.
[2019-01-28] MEDS: ONDANSETRON HCL 4 MG/2 ML VIAL IVP PRN ×2 (05:04→17:33)
[2019-01-28] MEDS: KCL 20 mEq in NS 1000 mL 1,000 ML IV SCH ×2 (05:04→14:33)
--- NOTE | 2019-01-28 06:50 | NUR ---
Closing note Patient called for assistance to restroom, for another episode of BM. SCD's were disconnected, bed alarm off and he ambulated self with steady gait to restroom. Provided with new gown and clean pad. IVF infusing well. Bed alarm on, SCD's on and call light w/in reach. Will endorse care to day shift nurse.
--- NOTE | 2019-01-28 07:30 | NUR ---
opening note patient is resting in bed, A&Ox4, assessment completed, educated route sales person light system and plan of care, patient verbalized understanding IV fluids running and tolerating well, fall/safety and isolation precautions in place, no signs of distress at this time.
[2019-01-28 08:04] VITALS: BP_SYST 78
[2019-01-28] MEDS: CEFEPIME 1 GM in D5W 50 ML IV SCH ×2 (08:11→20:57)
[2019-01-28] MEDS: BALSAM PERU/CASTOR OIL 60 GM OINT...G. TP SCH (08:11)
[2019-01-28] MEDS: FAMOTIDINE 20 MG TABLET PO SCH (08:11)
[2019-01-28] MEDS: MIDODRINE HCL 5 MG TABLET (PROAMATINE) PO SCH ×2 (08:11→20:57)
[2019-01-28] MEDS: MUPIROCIN 2% TOPICAL OINTMENT 22 GM TP SCH ×2 (08:11→20:58)
[2019-01-28 09:10] VITALS: BP_SYST 85
--- NOTE | 2019-01-28 09:40 | NUR ---
assisted patient to restroom patient went to restroom and had BM, I changed the patient's gown, patient resting back in bed, no other needs at this time, fall/safety and isolation precautions in place.
[2019-01-28] MEDS: traMADol HCL HCL 50 MG TABLET (ULTRAM) PO PRN (10:25)
[2019-01-28 11:12] VITALS: BP_SYST 82
[2019-01-28] MEDS: SULFAMETHOXAZOLE/TRIMETHOPR DS 1 TABLET PO SCH (12:25)
--- NOTE | 2019-01-28 12:25 | NUR ---
BACTRIM DS patient is resting in bed and eating lunch, educated on medication use and side effects, patient verbalized understanding and tolerated well, no other needs at this time, fall/safety and isolation precautions in place.
--- NOTE | 2019-01-28 13:45 | NUR ---
wound care wound care done per orders, patient tolerated well, educated patient on how to do wound care during the process, patient was able to verbalize back the step, no other needs at this time, patient requested to be off IV fluids for a while because it was burning his IV site,fall/safety and isolation precautions in place.
[2019-01-28 15:05] VITALS: BP_SYST 79
[2019-01-28] MEDS: DAPTOMYCIN IV SCH (16:35)
[2019-01-28] MEDS: NS IV SCH (16:35)
--- NOTE | 2019-01-28 18:19 | NUR ---
Nutrition F/U RD reviewed pt's current EMR including diet Hx, physician notes, nursing notes, pertinent labs/meds/procedures, care trends, and care activity. Current Diet Order: Low-fat diet x2 days Subjective information: Per RN, pt has been having nausea after taking Aryan, so they were advised to hold off on them for a bit. Pt also has been having diarrhea today -- 2-3x per RN report. Pt is not yet meeting optimal nutritional needs. Current PO intake: 60% average x4 meals -- fair, consistent w/ last RD visit NEW Estimated Energy Expenditure (kcals/day) 9461-4901 kcal/day (30-35 kcal/kg IBW for malnutrition, CA) -- sepsis resolved per EMR NEW Estimated Protein Required (g/day) 98-130 gm/day (1.5-2 gm/kg IBW for wound healing, CA) -- sepsis resolved per EMR Estimated Fluid Required (l/day) 2-2.2 L/day (1 mL/kcal for adult maintenance) Problem/Etiology/Signs/Symptoms Malnutrition related to catabolic condition and lack of appetite as evidenced by 50% PO intake, BMI 18 kg/m2, and 77% IBW. *ongoing Increased nutrient needs r/t metabolic demands AEB estimated calorie and protein needs for sepsis and wound healing. *ongoing Expected Outcomes/Goals - Monitor appetite and PO intake w/ goals of pt meeting greater than 65% of estimated nutritional needs, labs trending WNL, and skin integrity/wt maintenance. Dietitian Recommendations * Recommend regular, low-fiber diet with Ensure Enlive BID, Aryan BID (provides additional 860 kcal and 45 gm of protein/day) * Recommend continuing snacks BID * Encourage PO intake Follow Up High Risk: F/U in 2-3 days
--- NOTE | 2019-01-28 18:25 | NUR ---
Dietitian Recommendations * Recommend regular, low-fiber diet with Ensure Enlive BID, Aryan BID (provides additional 860 kcal and 45 gm of protein/day) * Recommend continuing snacks BID * Encourage PO intake LP, RD Please refer to Nutrition F/U for details.
--- NOTE | 2019-01-28 18:45 | NUR ---
closing note patient is resting in bed, educated patient that due to his low BP there are certain pain medications he cannot get, patient verbalized understanding, patient alert and oriented, patient refused IV fluids because he believes that is what is making him nauseous and abdominal cramps, fall/safety and isolation precautions in place, will endorse report to [facility] nurse to continue with care, patient's has low BP and doctors are aware, patient can ambulate to bathroom with assist, Dr Barriga covered Dr Ham today and he wants patient to be discharge until home health can safely be at this house with confirmation the next day.
--- NOTE | 2019-01-28 19:25 | NUR ---
CHANGE OF SHIFT; pt. awake, resting when received. in no acute distress. IVF remains off, endorsed that pt. does not want it back, awaiting for Dr. Nithya erwin. observed both contact isolation for MRSA nares and reverse isolation for low WBC. will reassess later. call light within reach.
[2019-01-28 20:30] VITALS: BP_SYST 95
--- NOTE | 2019-01-28 20:30 | NUR ---
NOTES: pt. dozing off. awakened for VS and due medications. resume IV on left antecubital with NS plus 20 meq KCL @ 100 cc/hr. moves all extremities. on room air, denies any shortness of breath nor discomfort. rt. arm wound with dressing , skin elevation and discoloration on his back, neck and forehead related to diagnosis of kaposi sarcoma. on fall risk precautions. call light at bedside.
--- NOTE | 2019-01-28 21:00 | NUR ---
NOTES: due medications given, turn to side and repositioned self. sequentials reapplied. voided per urinal. no bm today, wants sleeping pill.
[2019-01-28] MEDS: ZOLPIDEM TARTRATE 5 MG TABLET PO PRN (21:12)
--- NOTE | 2019-01-28 21:40 | NUR ---
NOTES: Dr. Jackman here, seen pt. at bedside and take a look on pt. rt. arm wound, was told that no procedure needed.
--- NOTE | 2019-01-29 | NUR ---
NOTES: made rounds, pt. sleeping. repositioned self for comfort.
[2019-01-29 00:35] VITALS: BP_SYST 86
--- NOTE | 2019-01-29 02:00 | NUR ---
NOTES: condition unchanged, continue to monitor.
[2019-01-29] MEDS: KCL 20 mEq in NS 1000 mL 1,000 ML IV SCH ×2 (03:39→10:33)
--- NOTE | 2019-01-29 04:12 | NUR ---
NOTES: IV site infiltrated, restarted on left hand with gauge #22, resume IV. needs attended. off sequentials per pt. request.
--- NOTE | 2019-01-29 05:34 | NUR ---
NOTES: pt. ambulated to the restroom, stand by assist. had 1 loose bm, will observe.
[2019-01-29] MEDS: ONDANSETRON HCL 4 MG/2 ML VIAL IVP PRN (05:53)
--- NOTE | 2019-01-29 06:00 | NUR ---
NOTES: pt. feels nauseated after eating his yogurt no vomiting, medicated with IV Zofran.
[2019-01-29] MEDS: LOPERAMIDE HCL 2 MG CAPSULE PO PRN (06:33)
--- NOTE | 2019-01-29 06:35 | NUR ---
CLOSING NOTES; pt. had another loose stool, Imodium capsules given as ordered. IVF patent at same rate. needs attended. observed contact and reverse isolation. call light at bedside. for further care and assist. on fall precautions.
--- NOTE | 2019-01-29 06:55 | NUR ---
Nutrition Update Goran Scale 18 noted. Pt admitted for HIV, Arm Abscess Cellulitis, Possible Sepsis Diet: Low Fat BMI: 17.8 kg/m2 RD to follow per nutrition care standards.
--- NOTE | 2019-01-29 08:10 | NUR ---
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
[2019-01-29 08:41] VITALS: BP_SYST 97
[2019-01-29] MEDS: FAMOTIDINE 20 MG TABLET PO SCH (08:56)
[2019-01-29] MEDS: MIDODRINE HCL 5 MG TABLET (PROAMATINE) PO SCH (08:56)
[2019-01-29] MEDS: CEFEPIME 1 GM in D5W 50 ML IV SCH (08:56)
--- NOTE | 2019-01-29 08:56 | NUR ---
Medication patient resting in bed, educated him on medications uses and potential side effects, he verbalized understanding and tolerated well, patient complaining of pain to IV site, no redness or s/s of infiltration noted, repositioned IV and flushed with NS, patient states it feels better, IV antibiotic hung and infusing well, continuing to monitor, no other needs at this time, bed in lowest position, two side rails up, call light within reach, fall, isolation, aspiration precautions in place.
[2019-01-29] MEDS: BALSAM PERU/CASTOR OIL 60 GM OINT...G. TP SCH ×2 (09:00→16:12)
[2019-01-29] MEDS: MUPIROCIN 2% TOPICAL OINTMENT 22 GM TP SCH (09:01)
--- NOTE | 2019-01-29 10:30 | NUR ---
IV line patient complaining of pain to IV line, charge nurse Maria Isabel RN attempted to re-insert and IV line, no success, will follow up with IV insertion as needed, patient may discharge today, home with home health.
[2019-01-29] MEDS: ACETAMINOPHEN 325 MG TABLET PO PRN (10:47)
--- NOTE | 2019-01-29 10:47 | NUR ---
Medication patient resting in bed, complaining of headache, educated on medication uses and potential side effects, he verbalized understanding and tolerated well, continuing to monitor, no other needs at this time, bed in lowest position, two side rails up, call light within reach, fall, isolation, aspiration precautions in place.
[2019-01-29 11:36] VITALS: BP_SYST 88
--- NOTE | 2019-01-29 12:15 | NUR ---
RN rounds patient resting in bed, eyes closed, breathing is even and unlabored, no signs of distress, offered patient his medication now, he states, "I want to sleep," will follow up with medication administration, no other needs at this time, bed in lowest position, two side rails up, call light within reach, fall, isolation and aspiration precautions in place.
[2019-01-29] MEDS: SULFAMETHOXAZOLE/TRIMETHOPR DS 1 TABLET PO SCH (14:11)
--- NOTE | 2019-01-29 14:14 | NUR ---
RN rounds/medication/DC planning patient resting in bed, awake, denies pain, educated on medication uses and potential side effects, he verbalized understanding and tolerated well. Inquired of the patient if he's ever had home health, the patient states he did but cannot remember the name of the company, patient asking if it is necessary to have home health as he was previously doing the wound care on his own and he has many family members to help him, will follow up with Case Management regarding these questions and will follow up with Dr. Ham. Patient has no other needs at this time, bed in lowest position, two side rails up, call light within reach, fall, isolation and aspiration precautions in place. Addendum: 01/29/19 at 1420 by Colin Cervantes RN Bactrim PO administered late secondary to patient care.
--- NOTE | 2019-01-29 14:48 | NUR ---
Spoke with Dr. Ham regarding DC planning informed her that case management is still looking for a home health agency for the patient and according to the patient he has had home health before but he cannot remember the name of the place right now, patient also requesting to go home without home health as he supposedly has family that can help him, Dr. Ham to come see the patient. Addendum: 01/29/19 at 1552 by Colin Cervantes RN Dr. Ham is aware that patient does not have an IV line.
[2019-01-29 15:42] VITALS: BP_SYST 84
--- NOTE | 2019-01-29 15:50 | NUR ---
RN rounds patient resting in bed, eyes closed, breathing is even and unlabored, easy to wake, informed patient that MD will come by to assess him and speak with him, he verbalized understanding, no other needs at this time, bed in lowest position, two side rails up, call light within reach, fall, isolation, and aspiration precautions in place. Pending wound care at this time, depending on discharge, if patient does discharge today, follow up pictures will be required prior to discharge, otherwise wound care as per orders.
--- NOTE | 2019-01-29 16:41 | NUR ---
Wound care performed per orders, patient tolerated well, wound pictures were taken. Patient was educated on clean technique and on how to perform wound care, he verbalized understanding and was able to assist with wound care, patient was provided with supplies for him to take home in the meantime until he can go to [facility] or other facility for wound care.
[2019-01-29 16:45] VITALS: BP_SYST 54
--- NOTE | 2019-01-29 17:31 | NUR ---
D/C Patient Patient given medication reconciliation form and D/C instructions. Exit Care provided. Patient verbalized understanding. MD discussed with patient the results and treatment provided. Ambulatory with steady gait for discharge to home. Patient in stable condition, ID band removed. IV catheter removed, intact and dressing applied, no active bleeding. Rx of DOXYCYCLINE, BACTROBAN OINTMENT, MIDODRINE given. Patient educated on pain management. All belongings sent with patient. PATIENT WAS INFORMED THAT HIS HOME MEDICATIONS ARE BEING RETRIEVED FROM PHARMACY, WILDA STILL LEFT WITHOUT HOME MEDICATIONS. MEDICATIONS ARE IN A SEALED MEDICATION BAG IN MEDICATION ROOM.CALLED THE PATIENT AND INFROMED HIM, HE WILL BE BACK TONIGHT TO PICK THEM UP. Addendum: 01/29/19 at 1810 by Colin Cervantes RN PATIENT'S SISTER LIDIA CAME TO LICENSED [employer] SALES AGENT THE MEDICATIONS.
== END 2019-01-29 17:20 | disposition home health service (06) | DRG 892 ==
LOC: SED 20:43 → STU 22:57 → SIC 01-20 01:50 → STU 01-26 06:44 → SMU 01-26 22:42
PROVIDERS: ADMIT Internal Medicine; ATTEND Internal Medicine
DX: A41.9 Sepsis, unspecified organism (principal); B20 Human immunodeficiency virus [HIV] disease; R65.21 Severe sepsis with septic shock; E43 Unspecified severe protein-calorie malnutrition; C46.9 Kaposi's sarcoma, unspecified; D64.9 Anemia, unspecified; L02.413 Cutaneous abscess of right upper limb; B95.62 Methicillin resistant Staphylococcus aureus infection as the cause of diseases classified elsewhere; G89.4 Chronic pain syndrome; W57.XXXA Bitten or stung by nonvenomous insect and other nonvenomous arthropods, initial encounter; Z85.89 Personal history of malignant neoplasm of other organs and systems; Z91.14 Patient's other noncompliance with medication regimen; Z68.1 Body mass index [BMI] 19.9 or less, adult; Z79.899 Other long term (current) drug therapy; Y93.89 Activity, other specified; Y92.89 Other specified places as the place of occurrence of the external cause; Y99.8 Other external cause status
CPT/HCPCS: 36415; 71045; 73090; 80048; 80053; 80202-TC; 80307; 81003; 83605; 84484; 85007; 85025; 85027; 85610-TC; 85651-TC; 87040-TC; 87070-TC; 87081; 87186-TC; 87536; 93005; 96365; 96366; 96368; 99285; G0378; J0692; J0878; J1450; J2270; J2405; J2543; J3370; J3480; J3490; J7030; J7050; J7060; Q0163

== ENCOUNTER 2019-02-08 03:04 | Inpatient (IN) | payer MEDICAID ==
[~2019-02-08] VITALS: Ht 162.6 cm; Wt 59.9 kg
[~2019-02-08 03:04] MED LIST changes: -CLIN150C15 PO; +DOXY100T2 PO; -HYDR-3917 PO; +MIDO10TA PO; +SULF1TAB48 PO
[2019-02-08 03:05] VITALS: BP_SYST 112
[2019-02-08] MEDS ORDERED: NACL 0.9% 1,000 ML IV ONE (03:26)
[2019-02-08] MEDS ORDERED: MORPHINE 4 MG/ML INJ. SYRINGE IVP ONE (03:30)
[2019-02-08 03:58] LABS: HEMATOCRIT 36.5 % (36-54); HEMOGLOBIN 12.2 g/dL (14.0-18.0); MEAN CORPUSCULAR HEMOGLOBIN 31 pg (27-31); MEAN CORPUSCULAR HGB CONC 34 % (32-36); MEAN CORPUSCULAR VOLUME 92 fL (79.0-98.0); PLATELET COUNT (AUTO) 247 K/uL (130-430); RED BLOOD CELL COUNT(AUTO) 3.96 MIL/uL (4.2-6.2); RED CELL DISTRIBUTION WIDTH 15.3 % (9.0-15.0); WHITE BLOOD COUNT (AUTO) 2.8 K/uL (4.8-10.8)
[2019-02-08 04:10] LABS: CALCIUM 8.5 mg/dL (8.4-11.0); CREATININE 1.03 mg/dL (0.55-1.30); POTASSIUM 4.3 mmol/L (3.5-5.1)
[2019-02-08 04:13] LABS: PROTHROMBIN TIME 10.4 SECS (9.5-12.5)
[2019-02-08 04:16] LABS: ALBUMIN 3.8 g/dL (3.4-4.8); TOTAL BILIRUBIN 0.3 mg/dL (0.0-1.0)
[2019-02-08 04:25] LABS: ATYPICAL LYMPHOCYTES % 0 % (0-0); BAND % (MANUAL) 1 % (0-6); BASOPHILS % (MANUAL) 0 % (0-2); EOSINOPHILS % (MANUAL) 5 % (0-7); LYMPHOCYTES % (MANUAL) 48 % (20-46); METAMYELOCYTES % 0 % (0-0); MONOCYTES % (MANUAL) 14 % (0-11); MYELOCYTES % 0 % (0-0)
[2019-02-08] MEDS ORDERED: LOPERAMIDE HCL 2 MG CAPSULE PO PRN (11:15)
[2019-02-08] MEDS ORDERED: SULFAMETHOXAZOLE PO SCH (11:15)
[2019-02-08] MEDS ORDERED: TRIMETHOPRIM PO SCH (11:15)
[2019-02-08] MEDS ORDERED: LOPERAMIDE HCL 2 MG CAPSULE PO ONE (11:15)
[2019-02-08] MEDS ORDERED: CHOLECALCIFEROL (VITAMIN D3) 2,000 UNIT TABLET PO ONE (12:15)
[2019-02-08] MEDS ORDERED: MULTIVITS,CA,MINERALS/IRON/FA 1 TABLET PO ONE (12:15)
[2019-02-08] MEDS ORDERED: ACETAMINOPHEN 325 MG TABLET PO PRN (12:30)
[2019-02-08] MEDS ORDERED: ACETAMINOPHEN/CODEINE 300 MG-30 MG TABLET PO PRN (12:30)
[2019-02-08] MEDS: BALSAM PERU/CASTOR OIL 60 GM OINT...G. TP SCH (12:31)
[2019-02-08] MEDS: LIPASE/PROTEASE/AMYLASE 1 CAP PO SCH ×2 (12:32→19:00)
[2019-02-08] MEDS: D5LR 1,000 ML IV SCH ×2 (12:42→21:16)
[2019-02-08 12:50] VITALS: BP_SYST 91
[2019-02-08] MEDS ORDERED: metroNIDAZOLE 500 MG TABLET PO SCH (14:00)
[2019-02-08] MEDS: metroNIDAZOLE 500 mg/NS 100 ML IV SCH ×2 (14:35→21:15)
[2019-02-08 18:15] VITALS: BP_SYST 97
[2019-02-08 21:00] VITALS: BP_SYST 77
[2019-02-08] MEDS: MIDODRINE HCL 5 MG TABLET (PROAMATINE) PO SCH (21:15)
[2019-02-08] MEDS: DOXYCYCLINE HYCLATE 100 MG CAPSULE PO SCH (21:15)
[2019-02-09 01:47] VITALS: BP_SYST 91
[2019-02-09] MEDS: ACETAMINOPHEN/CODEINE 300 MG-30 MG TABLET PO PRN ×2 (05:06→15:09)
[2019-02-09 07:50] VITALS: BP_SYST 87
[2019-02-09 07:51] LABS: ALBUMIN 2.7 g/dL (3.4-4.8); CALCIUM 7.8 mg/dL (8.4-11.0); CREATININE 0.78 mg/dL (0.55-1.30); PHOSPHORUS 3.8 mg/dL (2.7-4.5); POTASSIUM 3.8 mmol/L (3.5-5.1); TOTAL BILIRUBIN 0.1 mg/dL (0.0-1.0)
[2019-02-09 08:02] LABS: BASOPHILS % (AUTO) 0.4 % (0.0-2.0); EOSINOPHILS # (AUTO) 0.2 K/uL (0.0-0.4); EOSINOPHILS % (AUTO) 9.8 % (0.0-4.0); HEMATOCRIT 28.1 % (36-54); HEMOGLOBIN 9.4 g/dL (14.0-18.0); LYMPHOCYTES # (AUTO) 0.8 K/uL (1.0-5.5); LYMPHOCYTES % (AUTO) 43.2 % (20.5-51.5); MEAN CORPUSCULAR HEMOGLOBIN 31 pg (27-31); MEAN CORPUSCULAR HGB CONC 34 % (32-36); MEAN CORPUSCULAR VOLUME 91 fL (79.0-98.0); MONOCYTES # (AUTO) 0.2 K/uL (0.0-1.0); MONOCYTES % (AUTO) 10.1 % (1.7-9.3); NEUTROPHILS % (AUTO) 36.5 % (40.0-70.0); PLATELET COUNT (AUTO) 192 K/uL (130-430); RED BLOOD CELL COUNT(AUTO) 3.08 MIL/uL (4.2-6.2); RED CELL DISTRIBUTION WIDTH 15.2 % (9.0-15.0)
[2019-02-09 08:10] LABS: NEUTROPHILS # (AUTO) 0.7 K/uL (1.8-7.7)
[2019-02-09] MEDS: MULTIVITS,CA,MINERALS/IRON/FA 1 TABLET PO SCH (08:37)
[2019-02-09] MEDS: DOXYCYCLINE HYCLATE 100 MG CAPSULE PO SCH ×2 (08:37→20:53)
[2019-02-09] MEDS: metroNIDAZOLE 500 mg/NS 100 ML IV SCH ×3 (08:37→20:56)
[2019-02-09] MEDS: MIDODRINE HCL 5 MG TABLET (PROAMATINE) PO SCH ×3 (08:38→20:53)
[2019-02-09] MEDS: LIPASE/PROTEASE/AMYLASE 1 CAP PO SCH ×3 (08:38→18:28)
[2019-02-09] MEDS: D5LR 1,000 ML IV SCH ×2 (08:38→20:39)
[2019-02-09] MEDS: CHOLECALCIFEROL (VITAMIN D3) 2,000 UNIT TABLET PO SCH (08:38)
[2019-02-09] MEDS: BALSAM PERU/CASTOR OIL 60 GM OINT...G. TP SCH (08:52)
[2019-02-09] MEDS: TENOFOVIR DISOPROXIL FUMARATE 300 MG TABLET(VIREAD) PO SCH (08:52)
[2019-02-09] MEDS: RITONAVIR 100 MG CAPSULE (NORVIR) PO SCH (08:53)
[2019-02-09] MEDS: EMTRICITABINE 200 MG CAPSULE PO SCH (08:53)
[2019-02-09 11:05] VITALS: BP_SYST 85
[2019-02-09 15:28] VITALS: BP_SYST 87
[2019-02-09] MEDS: ONDANSETRON HCL 4 MG/2 ML VIAL IVP PRN (18:28)
[2019-02-09 20:00] VITALS: BP_SYST 80
[2019-02-10 03:32] VITALS: BP_SYST 93
[2019-02-10] MEDS: D5LR 1,000 ML IV SCH ×2 (06:53→20:07)
[2019-02-10] MEDS: metroNIDAZOLE 500 mg/NS 100 ML IV SCH ×3 (06:53→22:30)
[2019-02-10 08:02] LABS: HEMATOCRIT 30.8 % (36-54); HEMOGLOBIN 10.4 g/dL (14.0-18.0); MEAN CORPUSCULAR HEMOGLOBIN 31 pg (27-31); MEAN CORPUSCULAR HGB CONC 34 % (32-36); MEAN CORPUSCULAR VOLUME 92 fL (79.0-98.0); PLATELET COUNT (AUTO) 190 K/uL (130-430); RED BLOOD CELL COUNT(AUTO) 3.34 MIL/uL (4.2-6.2); RED CELL DISTRIBUTION WIDTH 15.1 % (9.0-15.0)
[2019-02-10 08:12] LABS: WHITE BLOOD COUNT (AUTO) 1.6 K/uL (4.8-10.8)
[2019-02-10 08:27] LABS: ALBUMIN 2.7 g/dL (3.4-4.8); CALCIUM 7.9 mg/dL (8.4-11.0); CREATININE 0.71 mg/dL (0.55-1.30); FREE T4 (FREE THYROXINE) 0.8 ng/dl (0.8-1.5); POTASSIUM 3.9 mmol/L (3.5-5.1); TOTAL BILIRUBIN 0.1 mg/dL (0.0-1.0)
[2019-02-10 08:50] VITALS: BP_SYST 79
[2019-02-10] MEDS: LIPASE/PROTEASE/AMYLASE 1 CAP PO SCH ×3 (09:46→18:06)
[2019-02-10] MEDS: MULTIVITS,CA,MINERALS/IRON/FA 1 TABLET PO SCH (09:47)
[2019-02-10] MEDS: CHOLECALCIFEROL (VITAMIN D3) 2,000 UNIT TABLET PO SCH (09:47)
[2019-02-10] MEDS: DOXYCYCLINE HYCLATE 100 MG CAPSULE PO SCH ×2 (09:47→20:07)
[2019-02-10] MEDS: MIDODRINE HCL 5 MG TABLET (PROAMATINE) PO SCH ×3 (09:48→20:07)
[2019-02-10] MEDS: EMTRICITABINE 200 MG CAPSULE PO SCH (09:51)
[2019-02-10] MEDS: RITONAVIR 100 MG CAPSULE (NORVIR) PO SCH (09:51)
[2019-02-10] MEDS: TENOFOVIR DISOPROXIL FUMARATE 300 MG TABLET(VIREAD) PO SCH (09:51)
[2019-02-10] MEDS: BALSAM PERU/CASTOR OIL 60 GM OINT...G. TP SCH (09:55)
[2019-02-10 10:05] LABS: BASOPHILS % (MANUAL) 0 % (0-2); EOSINOPHILS % (MANUAL) 9 % (0-7); LYMPHOCYTES % (MANUAL) 45 % (20-46); MONOCYTES % (MANUAL) 7 % (0-11)
[2019-02-10 12:35] VITALS: BP_SYST 120
[2019-02-10] MEDS: ONDANSETRON HCL 4 MG/2 ML VIAL IVP PRN ×2 (14:20→20:20)
[2019-02-10 16:18] VITALS: BP_SYST 102
[2019-02-10] MEDS ORDERED: TBO-FILGRASTIM 300 MCG/0.5 ML SYRINGE SUBCUT SCH (17:00)
[2019-02-10 20:00] VITALS: BP_SYST 90
[2019-02-10] MEDS: ACETAMINOPHEN/CODEINE 300 MG-30 MG TABLET PO PRN (20:14)
[2019-02-10] MEDS ORDERED: MORPHINE 2 MG/ML INJ. SYRINGE IVP PRN (23:30)
[2019-02-10] MEDS: METOCLOPRAMIDE HCL 10 MG/2 ML VIAL IVP PRN (23:43)
[2019-02-10 23:44] VITALS: BP_SYST 108
[2019-02-10] MEDS: MORPHINE 4 MG/ML INJ. SYRINGE IVP PRN (23:44)
[2019-02-11] MEDS: metroNIDAZOLE 500 mg/NS 100 ML IV SCH ×3 (06:38→21:43)
[2019-02-11] MEDS: LIPASE/PROTEASE/AMYLASE 1 CAP PO SCH ×3 (08:00→18:25)
[2019-02-11 08:08] LABS: ALBUMIN 2.4 g/dL (3.4-4.8); CALCIUM 7.7 mg/dL (8.4-11.0); CREATININE 0.78 mg/dL (0.55-1.30); PHOSPHORUS 3.4 mg/dL (2.7-4.5); POTASSIUM 3.6 mmol/L (3.5-5.1); TOTAL BILIRUBIN 0.2 mg/dL (0.0-1.0)
[2019-02-11 08:28] VITALS: BP_SYST 80
[2019-02-11 08:33] LABS: TOTAL IRON BIND. CAPACITY 256 ug/dL (250-450)
[2019-02-11] MEDS ORDERED: IOHEXOL 100 ML IV ONE (09:12)
[2019-02-11 09:38] LABS: HEMATOCRIT 22.4 % (36-54); HEMOGLOBIN 7.5 g/dL (14.0-18.0); RED BLOOD CELL COUNT(AUTO) 2.42 MIL/uL (4.2-6.2); RED CELL DISTRIBUTION WIDTH 15.2 % (9.0-15.0); RETICULOCYTE COUNT 0.7 % (0.5-1.5)
[2019-02-11 09:43] LABS: MEAN CORPUSCULAR HEMOGLOBIN 31 pg (27-31); MEAN CORPUSCULAR HGB CONC 34 % (32-36); MEAN CORPUSCULAR VOLUME 93 fL (79.0-98.0); PLATELET COUNT (AUTO) 191 K/uL (130-430); WHITE BLOOD COUNT (AUTO) 9.2 K/uL (4.8-10.8)
[2019-02-11] MEDS: MULTIVITS,CA,MINERALS/IRON/FA 1 TABLET PO SCH (10:08)
[2019-02-11] MEDS: TENOFOVIR DISOPROXIL FUMARATE 300 MG TABLET(VIREAD) PO SCH (10:09)
[2019-02-11] MEDS: MIDODRINE HCL 5 MG TABLET (PROAMATINE) PO SCH ×3 (10:09→21:42)
[2019-02-11] MEDS: CHOLECALCIFEROL (VITAMIN D3) 2,000 UNIT TABLET PO SCH (10:09)
[2019-02-11] MEDS: EMTRICITABINE 200 MG CAPSULE PO SCH (10:09)
[2019-02-11] MEDS: BALSAM PERU/CASTOR OIL 60 GM OINT...G. TP SCH (10:09)
[2019-02-11] MEDS: DOXYCYCLINE HYCLATE 100 MG CAPSULE PO SCH ×2 (10:09→21:43)
[2019-02-11] MEDS: RITONAVIR 100 MG CAPSULE (NORVIR) PO SCH (10:09)
[2019-02-11 10:14] VITALS: BP_SYST 75
[2019-02-11] MEDS: D5LR 1,000 ML IV SCH (10:21)
[2019-02-11] MEDS: cefTRIAXone 1 GM in D5W 50 ML IV SCH (10:22)
[2019-02-11 10:51] LABS: BAND % (MANUAL) 14 % (0-6); BASOPHILS % (MANUAL) 0 % (0-2); EOSINOPHILS % (MANUAL) 4 % (0-7); LYMPHOCYTES % (MANUAL) 15 % (20-46); MONOCYTES % (MANUAL) 9 % (0-11)
[2019-02-11] MEDS ORDERED: NACL 0.9% 500 ML IV STA (10:51)
[2019-02-11] MEDS ORDERED: LACTULOSE 20 GM/30 ML UDC PO ONE (12:00)
[2019-02-11] MEDS ORDERED: BISACODYL 10 MG/SUPPOSITORY RC PRN (12:00)
[2019-02-11] MEDS ORDERED: BISACODYL 5 MG TABLET.DR (DULCOLAX) PO ONE (12:00)
[2019-02-11] MEDS ORDERED: BISACODYL 5 MG TABLET.DR (DULCOLAX) PO PRN (12:00)
[2019-02-11 12:40] VITALS: BP_SYST 114
[2019-02-11 13:18] LABS: BASOPHILS % (AUTO) 0.2 % (0.0-2.0); EOSINOPHILS # (AUTO) 0.3 K/uL (0.0-0.4); EOSINOPHILS % (AUTO) 2.2 % (0.0-4.0); HEMOGLOBIN 10.7 g/dL (14.0-18.0); LYMPHOCYTES # (AUTO) 1.2 K/uL (1.0-5.5); LYMPHOCYTES % (AUTO) 9.9 % (20.5-51.5); MEAN CORPUSCULAR HEMOGLOBIN 31 pg (27-31); MEAN CORPUSCULAR HGB CONC 33 % (32-36); MEAN CORPUSCULAR VOLUME 92 fL (79.0-98.0); MONOCYTES # (AUTO) 0.3 K/uL (0.0-1.0); MONOCYTES % (AUTO) 2.8 % (1.7-9.3); NEUTROPHILS # (AUTO) 10.1 K/uL (1.8-7.7); NEUTROPHILS % (AUTO) 84.9 % (40.0-70.0); PLATELET COUNT (AUTO) 194 K/uL (130-430); RED BLOOD CELL COUNT(AUTO) 3.49 MIL/uL (4.2-6.2); RED CELL DISTRIBUTION WIDTH 15.4 % (9.0-15.0); WHITE BLOOD COUNT (AUTO) 11.9 K/uL (4.8-10.8)
[2019-02-11 15:11] VITALS: BP_SYST 88
[2019-02-11] MEDS: ONDANSETRON HCL 4 MG/2 ML VIAL IVP PRN (15:23)
[2019-02-11 15:29] VITALS: BP_SYST 89
[2019-02-11] MEDS ORDERED: TBO-FILGRASTIM 480 MCG/0.8 ML SYRINGE SUBCUT SCH (17:00)
[2019-02-11 18:35] VITALS: BP_SYST 79
[2019-02-11] MEDS: MORPHINE 4 MG/ML INJ. SYRINGE IVP PRN (19:05)
[2019-02-11] MEDS: TEMAZEPAM 15 MG CAPSULE PO PRN (21:42)
[2019-02-12 00:45] VITALS: BP_SYST 86
[2019-02-12] MEDS: D5LR 1,000 ML IV SCH (05:18)
[2019-02-12] MEDS: metroNIDAZOLE 500 mg/NS 100 ML IV SCH ×3 (05:18→22:43)
[2019-02-12] MEDS: MORPHINE 4 MG/ML INJ. SYRINGE IVP PRN ×2 (05:30→11:15)
[2019-02-12 08:40] VITALS: BP_SYST 89
[2019-02-12] MEDS: MULTIVITS,CA,MINERALS/IRON/FA 1 TABLET PO SCH (08:46)
[2019-02-12] MEDS: DOXYCYCLINE HYCLATE 100 MG CAPSULE PO SCH ×2 (08:46→22:43)
[2019-02-12] MEDS: LIPASE/PROTEASE/AMYLASE 1 CAP PO SCH ×3 (08:46→17:19)
[2019-02-12] MEDS: CHOLECALCIFEROL (VITAMIN D3) 2,000 UNIT TABLET PO SCH (08:46)
[2019-02-12] MEDS: MIDODRINE HCL 5 MG TABLET (PROAMATINE) PO SCH ×3 (08:46→22:44)
[2019-02-12] MEDS: EMTRICITABINE 200 MG CAPSULE PO SCH (08:47)
[2019-02-12] MEDS: RITONAVIR 100 MG CAPSULE (NORVIR) PO SCH (08:47)
[2019-02-12] MEDS: TENOFOVIR DISOPROXIL FUMARATE 300 MG TABLET(VIREAD) PO SCH (08:47)
[2019-02-12] MEDS: cefTRIAXone 1 GM in D5W 50 ML IV SCH (11:07)
[2019-02-12] MEDS: BALSAM PERU/CASTOR OIL 60 GM OINT...G. TP SCH (11:12)
[2019-02-12 11:20] VITALS: BP_SYST 102
[2019-02-12 12:43] LABS: WHITE BLOOD COUNT (AUTO) 1.8 K/uL (4.8-10.8)
[2019-02-12] MEDS ORDERED: LACTULOSE 20 GM/30 ML UDC PO ONE (16:15)
[2019-02-12] MEDS ORDERED: BISACODYL 5 MG TABLET.DR (DULCOLAX) PO ONE (16:15)
[2019-02-12 16:30] VITALS: BP_SYST 88
[2019-02-12] MEDS: METOCLOPRAMIDE HCL 10 MG/2 ML VIAL IVP PRN (18:28)
[2019-02-12] MEDS: TEMAZEPAM 15 MG CAPSULE PO PRN (22:47)
[2019-02-13 07:16] LABS: BASOPHILS % (AUTO) 0.3 % (0.0-2.0); EOSINOPHILS # (AUTO) 0.7 K/uL (0.0-0.4); EOSINOPHILS % (AUTO) 6.5 % (0.0-4.0); HEMATOCRIT 29.6 % (36-54); HEMOGLOBIN 10.1 g/dL (14.0-18.0); LYMPHOCYTES % (AUTO) 9.1 % (20.5-51.5); MEAN CORPUSCULAR HEMOGLOBIN 31 pg (27-31); MEAN CORPUSCULAR HGB CONC 34 % (32-36); MEAN CORPUSCULAR VOLUME 92 fL (79.0-98.0); MONOCYTES # (AUTO) 0.3 K/uL (0.0-1.0); MONOCYTES % (AUTO) 2.6 % (1.7-9.3); NEUTROPHILS # (AUTO) 8.6 K/uL (1.8-7.7); NEUTROPHILS % (AUTO) 81.5 % (40.0-70.0); PLATELET COUNT (AUTO) 172 K/uL (130-430); RED BLOOD CELL COUNT(AUTO) 3.22 MIL/uL (4.2-6.2); RED CELL DISTRIBUTION WIDTH 15.6 % (9.0-15.0); WHITE BLOOD COUNT (AUTO) 10.5 K/uL (4.8-10.8)
[2019-02-13 07:24] LABS: CALCIUM 8.3 mg/dL (8.4-11.0); CREATININE 0.89 mg/dL (0.55-1.30); POTASSIUM 3.2 mmol/L (3.5-5.1)
[2019-02-13 08:30] VITALS: BP_SYST 87
[2019-02-13] MEDS: DOXYCYCLINE HYCLATE 100 MG CAPSULE PO SCH ×2 (08:41→20:12)
[2019-02-13] MEDS: MULTIVITS,CA,MINERALS/IRON/FA 1 TABLET PO SCH (08:42)
[2019-02-13] MEDS: RITONAVIR 100 MG CAPSULE (NORVIR) PO SCH (08:42)
[2019-02-13] MEDS: MIDODRINE HCL 5 MG TABLET (PROAMATINE) PO SCH ×3 (08:42→20:12)
[2019-02-13] MEDS: LIPASE/PROTEASE/AMYLASE 1 CAP PO SCH ×3 (08:42→17:29)
[2019-02-13] MEDS: CHOLECALCIFEROL (VITAMIN D3) 2,000 UNIT TABLET PO SCH (08:42)
[2019-02-13] MEDS: EMTRICITABINE 200 MG CAPSULE PO SCH (08:43)
[2019-02-13] MEDS: TENOFOVIR DISOPROXIL FUMARATE 300 MG TABLET(VIREAD) PO SCH (08:43)
[2019-02-13] MEDS: BALSAM PERU/CASTOR OIL 60 GM OINT...G. TP SCH (08:44)
[2019-02-13] MEDS: cefTRIAXone 1 GM in D5W 50 ML IV SCH (11:17)
[2019-02-13 11:26] VITALS: BP_SYST 87
[2019-02-13] MEDS: ONDANSETRON HCL 4 MG/2 ML VIAL IVP PRN (13:27)
[2019-02-13] MEDS ORDERED: MIDO5TAB PO (13:42)
[2019-02-13] MEDS ORDERED: AMYL1CAP54 PO (13:42)
[2019-02-13] MEDS: metroNIDAZOLE 500 mg/NS 100 ML IV SCH (14:07)
[2019-02-13] MEDS: D5LR 1,000 ML IV SCH (14:08)
[2019-02-13 17:17] VITALS: BP_SYST 85
[2019-02-13 19:30] VITALS: BP_SYST 90
[2019-02-13 20:15] VITALS: BP_SYST 90
== END 2019-02-13 20:55 | disposition home or self-care (01) | DRG 893 ==
LOC: SED 03:04 → SMU 06:30
PROVIDERS: ADMIT Internal Medicine; ATTEND Internal Medicine
DX: K75.9 Inflammatory liver disease, unspecified (principal); B20 Human immunodeficiency virus [HIV] disease; J18.9 Pneumonia, unspecified organism; E44.0 Moderate protein-calorie malnutrition; R57.1 Hypovolemic shock; D70.9 Neutropenia, unspecified; K52.9 Noninfective gastroenteritis and colitis, unspecified; D64.9 Anemia, unspecified; L03.119 Cellulitis of unspecified part of limb; I95.1 Orthostatic hypotension; L73.9 Follicular disorder, unspecified; Z20.1 Contact with and (suspected) exposure to tuberculosis; B95.62 Methicillin resistant Staphylococcus aureus infection as the cause of diseases classified elsewhere; Z68.22 Body mass index [BMI] 22.0-22.9, adult; Z86.14 Personal history of Methicillin resistant Staphylococcus aureus infection; Z79.899 Other long term (current) drug therapy
CPT/HCPCS: 36415; 80048; 80053; 82150-TC; 82607; 82728; 82746; 83540-TC; 83550-TC; 83690-TC; 83735-TC; 84100-TC; 84439; 85007; 85025; 85027; 85044-TC; 85610-TC; 87045-TC; 87046; 87081; 87177; 89055; 96361; 96374; 99285; J0696; J1447; J2270; J2405; J2765; J3490; J7040; J7060; J7120; J8499; Q9967